=== PATIENT | female | born 1950 | race Caucasian/White ===

== ENCOUNTER 2020-01-15 10:18 | Outpatient (REF) | payer MEDICARE, SELFPAY ==
[2020-01-15 11:24] LABS: Hematocrit 43.8 % (37-47); Hemoglobin 14.4 g/dl (12.0-16.0); Mean Corpuscular HGB Conc 32.9 g/dl (31.0-35.0); Mean Corpuscular Hemoglobin 30.3 pg (27.0-33.0); Mean Corpuscular Volume 92.2 fL (80-98); Mean Platelet Volume 9.6 fL (9.4-12.3); Platelet Count 227 X10*3/uL (160-400); Red Blood Count 4.75 X10*6/uL (4.20-5.50); White Blood Count 5.4 X10*3/uL (4.8-10.8)
[2020-01-15 11:50] LABS: Alanine Aminotransferase 15 U/L (0-31); Albumin Level 4.2 g/dL (3.5-5.0); Alkaline Phosphatase 67 U/L (39-117); Anion Gap 12 (12-20); Aspartate Amino Transferase 19 U/L (5-31); Bilirubin Total 0.6 mg/dL (0.0-1.0); Blood Urea Nitrogen 18 mg/dL (9-16); Calcium 9.6 mg/dL (8.4-10.2); Carbon Dioxide 25 mmol/L (22-29); Chloride 105 mmol/L (96-108); Cholesterol 167 mg/dL; Estimated Glomerular Filt Rate 52; Glucose Fasting 88 mg/dL (60-99); HDL Cholesterol 42 mg/dL; LDL Cholesterol Calculated 107 mg/dl; Sodium 138 mmol/L (135-145); Total Protein 6.8 g/dL (6.5-8.0); Triglycerides 92 mg/dL
== END 2020-01-15 10:19 | disposition home or self-care (01) ==
LOC: HO.HMGCLDS 10:18
PROVIDERS: PCP Internal Medicine; Visit Provider Internal Medicine
DX: B02.29 Other postherpetic nervous system involvement (principal); I10 Essential (primary) hypertension; C44.90 Unspecified malignant neoplasm of skin, unspecified
CPT/HCPCS: 36415; 80053; 80061; 85027

== ENCOUNTER 2020-01-30 15:29 | Outpatient (REF) | payer MEDICARE, SELFPAY ==
--- NOTE | 2020-01-30 15:35 | US_ITS ---
EXAMINATION: US PELVIS CLINICAL INFORMATION: Bloating and abdominal distention with question of ovarian mass COMPARISON: CT abdomen pelvis 07/25/2013 TECHNIQUE: Ultrasound of the pelvis is performed using both transabdominal and transvaginal transducers along with Doppler. Transvaginal imaging is performed due to inadequate visualization transabdominally. FINDINGS: Uterus: Status post hysterectomy and not seen Adnexa: A large complex mass is seen filling a large portion of the abdominal and pelvic cavity with estimated size of 25 x 23 x 21 cm. Multiple septations are seen in this mass. Both arterial and venous flow is seen within the septations of the mass. Moderate ascites is present as was mentioned on the abdominal ultrasound performed the same day. Discrete ovaries are not visualized. US/US pelvic complete IMPRESSION: Very large complex multiseptated pelvic mass, presumably ovarian malignancy.
--- NOTE | 2020-01-30 15:35 | US_ITS ---
EXAMINATION: US ABDOMEN COMPLETE CLINICAL INFORMATION: Abdominal distention with question of ascites.. COMPARISON: CT abdomen pelvis 07/25/2013 TECHNIQUE: Real-time imaging of the abdominal viscera. FINDINGS: PANCREAS: Pancreas could not be seen as it was obscured by bowel gas. ABDOMINAL AORTA: The proximal, mid, and distal segments are normal in caliber. INFERIOR VENA CAVA: Visualized portions are normal. LIVER: The liver is normal in size. The liver contour is normal. Parenchymal echogenicity is normal. No focal hepatic lesion. There is no intrahepatic biliary duct dilatation seen. GALLBLADDER: The gallbladder is physiologically distended without evidence of stones, sludge, polyps, wall thickening or pericholecystic fluid. COMMON BILE DUCT: Normal in caliber measuring 0.3 cm in diameter. RIGHT KIDNEY: Right-sided hydronephrosis caused by an obstructing stone seen on 07/25/2013 has resolved. No hydronephrosis at this time. No renal calculi or focal parenchymal lesions. The kidney measures 11.0 cm in maximum dimension. LEFT KIDNEY: No hydronephrosis. No renal calculi or focal parenchymal lesions. The kidney measures 9.5 cm in maximum dimension. SPLEEN: Normal. The spleen measures 10.7 cm in maximum dimension. FREE FLUID: Moderate ascites is present. A large pelvic mass is seen-see report of pelvic ultrasound performed same day US/US abdomen complete IMPRESSION: Moderate ascites is present. No hydronephrosis or liver metastases are seen. For description of the pelvic mass see CT pelvis performed same day
== END 2020-01-30 15:30 | disposition home or self-care (01) ==
LOC: HO.US 15:29
PROVIDERS: PCP Internal Medicine; Visit Provider Internal Medicine
DX: N83.8 Other noninflammatory disorders of ovary, fallopian tube and broad ligament (principal); R14.0 Abdominal distension (gaseous)
CPT/HCPCS: 76700; 76856

== ENCOUNTER 2020-05-15 21:47 | Inpatient (IN) | payer MEDICARE, SELFPAY ==
--- NOTE | 2020-05-15 | ECG_ITS ---
Test Reason : TACHY Blood Pressure : / mmHG Vent. Rate : 116 BPM Atrial Rate : 116 BPM P-R Int : 152 ms QRS Dur : 080 ms QT Int : 318 ms P-R-T Axes : 045 -17 038 degrees QTc Int : 442 ms Sinus tachycardia Otherwise normal ECG When compared with ECG of 06-APR-2015 16:19, No significant change was found Referred By: Generic ED Physician Electronically Signed By:MAYITO MARTINEZ MD
--- NOTE | ~2020-05-15 | CT_ITS ---
EXAMINATION: CT ANGIOGRAM OF THE CHEST WITH AND WITHOUT CONTRAST (CT PULMONARY ANGIOGRAM FOR PE) CLINICAL INFORMATION: Hypoxia COMPARISON: None TECHNIQUE: Prior to contrast administration, noncontrast localization images were obtained. Subsequently, multidetector volumetric imaging was performed from the thoracic inlet to below the diaphragms following the administration of 65 mL Omnipaque 350 intravenous contrast. No contrast reaction reported Sagittal, coronal, and MIP oblique sagittal reformatted images were obtained on the CT workstation, uploaded to PACS, and reviewed. This CT examination was performed using dose optimization techniques as appropriate, variously including the following: *Automated exposure control *Adjustment of mA and/or kV according to patient size (this includes techniques or standardized protocols for targeted exams where dose is matched to indication/reason for exam; i.e. extremities or head) *Use of iterative reconstruction technique Total exam dose-length product 249 mGy-cm FINDINGS: QUALITY OF STUDY/CONTRAST BOLUS: Satisfactory. There is slight limitation in the mid lungs due to respiratory motion. PULMONARY ARTERIES: No central or segmental pulmonary emboli. THORACIC AORTA: No aneurysm or dissection. LUNG: There is dependent atelectasis in the lower lobes bilaterally, right greater than left there is collapse of the majority of the basal segments of the right lower lobe. Superimposed consolidation is suspected in the basilar segments as well. The central airways are clear. Mild interlobular septal thickening is present in the lung apices. PLEURA: No pleural effusion or pneumothorax. MEDIASTINUM: Normal heart size. No pericardial effusion. No hilar or mediastinal lymphadenopathy. No evidence of septal bowing or right heart strain. Small amount of residual thymic tissue is present in the anterior mediastinum. No adenopathy. Thyroid gland is unremarkable. CHEST WALL/AXILLA: No axillary or internal mammary lymphadenopathy. OSSEOUS STRUCTURES: There is mild multilevel degenerative disc disease in the thoracic spine. A small superior endplate fracture is present at the T9 vertebral body, likely chronic. No additional fractures. Mild hyperkyphosis. No rib fractures. UPPER ABDOMEN: Unremarkable. No reflux of contrast into the hepatic veins to suggest elevated right heart pressures. CT/CT angio chest PE protocol IMPRESSION: 1. No evidence of pulmonary emboli. 2. Bibasilar segmental atelectasis, right side greater than left, most notably in the right lower lobe. Small foci of superimposed consolidation are possible. VTE: negative
--- NOTE | ~2020-05-15 | XR_ITS ---
EXAMINATION: XR CHEST CLINICAL INFORMATION: Shortness of breath COMPARISON: Chest x-ray 04/06/2015 TECHNIQUE: Frontal portable view of the chest was obtained. 11:18 PM FINDINGS: Central port catheter tip at caval atrial junction. Lung volume is low causing mild prominence of the bronchovascular markings. There are multifocal bibasilar airspace opacities. These are worse on the right than the left. No pleural effusion. No pneumothorax. Surgical clips right upper quadrant of abdomen. XR/XR chest 1V IMPRESSION: Multifocal bibasilar airspace opacities.
--- NOTE | ~2020-05-15 | US_ITS ---
EXAMINATION: US ABDOMEN LIMITED CLINICAL INFORMATION: transaminitis. COMPARISON: 01/30/2020 TECHNIQUE: Real-time imaging of the right upper quadrant abdominal viscera. FINDINGS: PANCREAS: Normal. LIVER: There is a 2.3 x 1.5 x 1.7 cm fluid containing focus between the left and right hepatic lobes which may correspond to loculated fluid within the falciform ligament region. A chronic, although an hepatic cyst is also possible. The liver is normal in size. The liver contour is normal. Parenchymal echogenicity is normal. No focal hepatic lesion. There is no intrahepatic biliary duct dilatation seen. GALLBLADDER: Status post cholecystectomy. COMMON BILE DUCT: Normal in caliber measuring 0.3 cm in diameter. RIGHT KIDNEY: Normal. No hydronephrosis. No renal calculi or focal parenchymal lesions. The kidney measures 11.6 cm in maximum dimension. FREE FLUID: None. US/US abdomen limited IMPRESSION: Small 2.3 cm oblong pocket of fluid between the right and left hepatic lobes, possibly loculated fluid in the region of the falciform ligament. Otherwise unremarkable right upper quadrant ultrasound. No acute findings. Status post cholecystectomy
[2020-05-15 21:57] VITALS: BP 98/54; PULSE 132; RESP 28; TEMP 39.9; O2SAT 90; BMI 21.7
[2020-05-15] MEDS: Acetaminophen 325 MG TABLET 650 MG PO (22:32)
[2020-05-15 22:33] LABS: MANUAL DIFF FLAG NO
--- NOTE | 2020-05-15 22:35 | ED_ITS ---
HPI - Fever General Chief Complaint: Fever Stated Complaint: ? SEPSIS Time Seen by Provider: 05/15/20 22:18 History of Present Illness HPI Narrative: Patient is a 69-year-old female presented today with having fever. Generalized malaise. Patient has a history of appendiceal cancer. Sta tus post removal back in February. The surgery was done at [facility]. Patient subsequently suffer from malnutrition. Failure to thrive. Had TPN place been on TPN for the last month. Was admitted to [facility] back in March. Positive coughing upper respiratory symptoms. Patient did have her coronavirus vaccine for shot was i March 01 shot in March. No pain on urination. Cough nonproductive in nature. Patient from home. Feels very weak and tired. Related Data Home Medications Medication Instructions Recorded Confirmed flu vacc (64yr IM 01/30/20 01/30/20 up)-MF59C(PF) 60 mcg(15 mcgx4)/0.5 mL IM syringe potassium citrate 10 mEq (1,080 20 meq PO BID 01/30/20 01/30/20 mg) tablet,extended release Previous Rx's Medication Instructions Recorded lidocaine 5 % topical patch 1 patch TOPICAL DAILY #30 ea 12/19/19 gabapentin 100 mg capsule 200 mg PO BID #360 cap 12/20/19 lisinopril 5 mg tablet 2.5 mg PO DAILY #45 tab 01/01/20 ibuprofen 600 mg tablet 600 mg PO TID PRN #270 tab 03/21/20 lorazepam 0.5 mg tablet 0.5 mg PO BEDTIME PRN 30 Days #30 04/22/20 tab Allergies Allergy/AdvReac Type Severity Reaction Status Date / Time No Known Allergies Allergy Verified 05/15/20 22:10 Review of Systems Review of Systems: Constitutional: No Weight loss, No Fever, No Chills, No Night Sweats, No Fatigue, No Malaise ENT/Mouth: No Hearing loss, No Ear Pain, No Nasal Congestion, No Sinus Pain, No Hoarseness, No sore throat, No Rhinorrhea, No Swallowing Difficulty Eyes: No Eye Pain, No Swelling, No Redness, No Foreign Body, No Discharge, No Vision Changes Cardiovascular: No Chest Pain, No SOB, No Dyspnea on Exertion, No Orthopnea, No Edema, No Palpitations Respiratory: Positive Cough, No Sputum, No Wheezing, No Smoke Exposure, No Dyspnea Gastrointestinal: No Nausea, No Vomiting, No Diarrhea, No Constipation, No abdominal Pain, No Hematochezia, No Melena Genitourinary: no irregular bleeding, No Dysuria, No Urinary Frequency, No Hematuria, No Urinary Incontinence, No Urgency, No Flank Pain, No Urinary Flow Changes, No Hesitancy Musculoskeletal: No joint pain, No Myalgias, No Joint Swelling Skin: No Skin Lesions, No rash Neuro: No Weakness, No Numbness, No Paresthesias, No Loss of Consciousness, No Dizziness, No Headache Psych: No Anxiety/Panic, No Depression, No SI/HI/AH/VH, No Social Issues, Heme/Lymph: No Bruising, No Bleeding,No Lymphadenopathy Endocrine: No Polyuria, No Polydipsia, No Temperature Intolerance [facility] Past Medical History Medical History Abdominal distention Ascites HTN (hypertension) Osteopenia Ovarian mass Prolapse of bladder PTSD (post-traumatic stress disorder) Right renal stone Surgical History History of lithotripsy History of partial hysterectomy History of tubal ligation Family History Family History Father Renal cell carcinoma HTN (hypertension) Stroke Mother HTN (hypertension) CVD (cardiovascular disease) Afib Social History Social History Alcohol intake: never Smoking Status: Never smoker Advance Directives: No Advance Directives Information Provided: Yes Physical Exam Vital Signs: Vital Signs: Last Vital Signs Temp 99.1 F 05/16/20 00:06 Pulse 108 H 05/16/20 00:06 Resp 18 05/16/20 00:06 BP 98/43 L 05/16/20 00:06 Pulse Ox 90 L 05/15/20 21:57 Body Mass Index 21.7 Appearance: Alert. Oriented X3. No acute distress. Eyes: Pupils equal, round and reactive to light. ENT: Pharynx normal. Neck: Normal inspection. Neck supple. No lymph nodes noted. No crepitus CVS: Normal heart rate and rhythm. Pulses normal. Normal S1 and S2 Respiratory: No respiratory distress. Breath sounds normal. No Wheezing. No rales Abdomen: Soft and nontender. No rigidity. No distention. good BS x4 Skin: Skin warm and dry. Normal skin color. Normal skin turgor. Extremities: No lower extremity edema. Neurovascular intact to all extremities. No Lacerations. No Rash Neuro: Oriented X 3. No motor deficit. No sensory deficit. Moving all extermities. No slurred speech MDM - Fever MDM Narrative Medical decision making narrative: Patient's chest x-ray show multifocal infiltrate. Question pneumonia. Patient's coronavirus test was negative. Started on cefepime for hospital-acquired pneumonia. Culture obtained. Lactate was less than 2. No evidence for severe sepsis. Patient given IV fluid with blood pressure recovering nicely. Temperature down. Heart rate down to 100. Will admit for further evaluation. Will monitor carefully. Currently in stable condition case discussed with hospitalist. Medical Records Attestation: I reviewed the patient's medical records. Lab Data Attestation: I reviewed the patient's lab results. Result diagrams: 05/15/20 22:25 05/15/20 22:25 Labs: Lab Results 05/15/20 05/15/20 05/15/20 Range/Units 22:25 22:25 22:25 WBC 11.0 H (4.8-10.8) X10*3/uL RBC 3.37 L D (4.20-5.50) X10*6/uL Hgb 9.6 L D (12.0-16.0) g/dl Hct 30.3 L D (37-47) % MCV 89.9 (80-98) fL MCH 28.5 (27.0-33.0) pg MCHC 31.7 (31.0-35.0) g/dl RDW 15.9 (11.0-16.0) % Plt Count 194 (160-400) X10*3/uL MPV 9.7 (9.4-12.3) fL Immature Gran % (Auto) 0.5 H (0.0-0.4) % Neut % (Auto) 87.1 H (45-73) % Lymph % (Auto) 9.5 L (20-40) % [place] % (Auto) 1.2 L (2-11) % Eos % (Auto) 1.4 (0-4) % Baso % (Auto) 0.3 (0-2) % Lymph # (Auto) 1.0 L (1.2-4.9) X10*3/uL [place] # (Auto) 0.1 (0.1-1.2) X10*3/uL Eos # (Auto) 0.2 (0.0-0.4) X10*3/uL Baso # (Auto) 0.0 (0.0-0.2) X10*3/uL Abs Immat Gran (auto) 0.05 H (0.00-0.03) X10*3/uL Absolute Neuts (auto) 9.6 H (2.0-8.3) X10*3/uL Absolute Nucleated RBC 0.040 H (0.0-0.012) X10*3/uL Nucleated RBC % (auto) 0.4 H (0.0-0.2) /100WBC Sodium 132 L (135-145) mmol/L Potassium 3.9 (3.3-5.1) mmol/L Chloride 103 (96-108) mmol/L Carbon Dioxide 23 (22-29) mmol/L Anion Gap 10 L (12-20) BUN 32 H D (9-16) mg/dL Creatinine 0.67 (0.5-1.4) mg/dL Estim Creat Clear Calc 58.9 Estimated GFR > 60 Random Glucose 80 (60-115) mg/dL Lactic Acid 1.0 (0.5-2.0) mmol/L Calcium 8.5 D (8.4-10.2) mg/dL Total Bilirubin 0.6 (0.0-1.0) mg/dL Direct Bilirubin 0.3 (0.0-0.5) mg/dL AST 80 H (5-31) U/L ALT 103 H (0-31) U/L Alkaline Phosphatase 238 H D (39-117) U/L Total Protein 5.5 L (6.5-8.0) g/dL Albumin 2.9 L D (3.5-5.0) g/dL Coronavirus (PCR) (Negative) Influenza Type A (PCR) (Negative) Influenza Type B (PCR) (Negative) RSV RNA Qual (PCR) (Negative) 05/15/20 Range/Units 22:26 WBC (4.8-10.8) X10*3/uL RBC (4.20-5.50) X10*6/uL Hgb (12.0-16.0) g/dl Hct (37-47) % MCV (80-98) fL MCH (27.0-33.0) pg MCHC (31.0-35.0) g/dl RDW (11.0-16.0) % Plt Count (160-400) X10*3/uL MPV (9.4-12.3) fL Immature Gran % (Auto) (0.0-0.4) % Neut % (Auto) (45-73) % Lymph % (Auto) (20-40) % [place] % (Auto) (2-11) % Eos % (Auto) (0-4) % Baso % (Auto) (0-2) % Lymph # (Auto) (1.2-4.9) X10*3/uL [place] # (Auto) (0.1-1.2) X10*3/uL Eos # (Auto) (0.0-0.4) X10*3/uL Baso # (Auto) (0.0-0.2) X10*3/uL Abs Immat Gran (auto) (0.00-0.03) X10*3/uL Absolute Neuts (auto) (2.0-8.3) X10*3/uL Absolute Nucleated RBC (0.0-0.012) X10*3/uL Nucleated RBC % (auto) (0.0-0.2) /100WBC Sodium (135-145) mmol/L Potassium (3.3-5.1) mmol/L Chloride (96-108) mmol/L Carbon Dioxide (22-29) mmol/L Anion Gap (12-20) BUN (9-16) mg/dL Creatinine (0.5-1.4) mg/dL Estim Creat Clear Calc Estimated GFR Random Glucose (60-115) mg/dL Lactic Acid (0.5-2.0) mmol/L Calcium (8.4-10.2) mg/dL Total Bilirubin (0.0-1.0) mg/dL Direct Bilirubin (0.0-0.5) mg/dL AST (5-31) U/L ALT (0-31) U/L Alkaline Phosphatase (39-117) U/L Total Protein (6.5-8.0) g/dL Albumin (3.5-5.0) g/dL Coronavirus (PCR) NEGATIVE (Negative) Influenza Type A (PCR) NEGATIVE (Negative) Influenza Type B (PCR) NEGATIVE (Negative) RSV RNA Qual (PCR) NEGATIVE (Negative) Critical Care Time Critical Care Time Total Critical Care Time: 40 Attestation: I have personally provided 40 minutes of critical care time exclusive of time spent on separately billable procedures. Time includes review of lab data, radiology results, discussion with consultants, and monitoring for potential decompensation. Interventions were performed as documented above Discharge Plan Discharge Clinical Impression: Pneumonia Patient Disposition: Admitted As Inpatient Prescriptions: No Action lidocaine 5 % adhesive patch,medicated 1 patch topical DAILY Qty: 30 RF: 6 gabapentin 100 mg capsule 200 mg PO BID Qty: 360 RF: 6 lisinopril 5 mg tablet 2.5 mg PO DAILY Qty: 45 RF: 3 ibuprofen 600 mg tablet 600 mg PO TID PRN (Reason: pain) Qty: 270 RF: 0 lorazepam 0.5 mg tablet 0.5 mg PO BEDTIME PRN (Reason: anxiety) 30 Days Qty: 30 RF: 2 potassium citrate 10 mEq (1,080 mg) tablet extended release 20 meq PO BID RF: 0 Fluad Quad 2019-(65y up)(PF) 60 mcg (15 mcg x 4)/0.5 mL syringe IM RF: 0
[2020-05-15 22:36] LABS: Basophils Percent Auto 0.3 % (0-2); Eosinophils Absolute Auto 0.2 X10*3/uL (0.0-0.4); Eosinophils Percent Auto 1.4 % (0-4); Hematocrit 30.3 % (37-47); Hemoglobin 9.6 g/dl (12.0-16.0); Imm Gran Abs Auto 0.05 X10*3/uL (0.00-0.03); Imm Gran Pct Auto 0.5 % (0.0-0.4); Lymphocytes Percent Auto 9.5 % (20-40); Mean Corpuscular HGB Conc 31.7 g/dl (31.0-35.0); Mean Corpuscular Hemoglobin 28.5 pg (27.0-33.0); Mean Corpuscular Volume 89.9 fL (80-98); Mean Platelet Volume 9.7 fL (9.4-12.3); Monocytes Absolute Auto 0.1 X10*3/uL (0.1-1.2); Monocytes Percent Auto 1.2 % (2-11); NRBC Pct Auto 0.4 /100WBC (0.0-0.2); Neutrophils Absolute Auto 9.6 X10*3/uL (2.0-8.3); Neutrophils Percent Auto 87.1 % (45-73); Platelet Count 194 X10*3/uL (160-400); Red Blood Count 3.37 X10*6/uL (4.20-5.50); Red Cell Distribution Width 15.9 % (11.0-16.0)
--- NOTE | 2020-05-15 22:53 | PC.NURSE ---
victoria [phone]
[2020-05-15] MEDS: cefEPime HCl 1 GM in 0.9 % Sodium Chloride 50 ML IV (22:59)
[2020-05-15] MEDS: 0.9 % Sodium Chloride 1,000 ML 999 ML IV (22:59)
[2020-05-15 23:02] LABS: Alanine Aminotransferase 103 U/L (0-31); Albumin Level 2.9 g/dL (3.5-5.0); Alkaline Phosphatase 238 U/L (39-117); Anion Gap 10 (12-20); Aspartate Amino Transferase 80 U/L (5-31); Bilirubin Direct 0.3 mg/dL (0.0-0.5); Bilirubin Total 0.6 mg/dL (0.0-1.0); Blood Urea Nitrogen 32 mg/dL (9-16); Calcium 8.5 mg/dL (8.4-10.2); Carbon Dioxide 23 mmol/L (22-29); Chloride 103 mmol/L (96-108); Creatinine Clr Calc Pharmacy 58.9; Estimated Glomerular Filt Rate > 60; Glucose Random 80 mg/dL (60-115); Potassium 3.9 mmol/L (3.3-5.1); Sodium 132 mmol/L (135-145); Total Protein 5.5 g/dL (6.5-8.0)
[2020-05-15 23:15] LABS: Influenza A PCR NEGATIVE (Negative); Influenza B PCR NEGATIVE (Negative); Resp Syncy Virus RNA Qual PCR NEGATIVE (Negative); SARS COV2 PCR INHOUSE NEGATIVE (Negative)
[2020-05-15] MEDS: vancomycin HCL 1,000 MG in 0.9 % Sodium Chloride 250 ML 270 MG IV (23:57)
[2020-05-16] VITALS (17 sets, daily range): BP systolic 86–127; BP diastolic 41–89; PULSE 67–108; RESP 16–26; TEMP 35.9–37.3; O2SAT 95–99
--- NOTE | 2020-05-16 00:34 | PM.IMHP ---
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 Mayank dempsey at [facility]; she subsequently discharged home on March 26. Since discharge patient has significantly reduced oral intakes and was eating and very small quantities; was not able tolerate p.o.; subsequently patient had a 2nd admission on April 11 at [facility] for failure to thrive where she had PICC line/port placed and subsequently sent to the home on TPN. Patient has been receiving TPN since then; This time patient mentioned that she had chills the day before and last night she had chills associated with a fever; recall in the visiting nurses who suggested to go to the ER for further evaluation. Otherwise patient denies any cough. Denies any chest pain palpitations lightheadedness dizziness. Denies any urinary symptoms. Denies any nausea vomiting or diarrhea. Denies any abdominal discomfort. Review of all other systems is negative except mentioned above ER course: Per ER team patient at exam was benign; port site looks okay; blood cultures have been sent from the port and peripheral line. Patient was hypertensive on presentation with systolic in a low 80s. Given fluids 30ml/kg; with improvement in blood pressure 95/45; he patient otherwise remained asymptomatic. But noted to have hypoxia to 90%; subsequently placed on supplemental oxygen. Patient was also initially significantly tachycardic-improving tachycardia with IV fluids. Admitted to the hospital for further [facility] Medical History Abdominal distention Ascites HTN (hypertension) Osteopenia Ovarian mass Prolapse of bladder PTSD (post-traumatic stress disorder) Right renal stone Family History Father Renal cell carcinoma HTN (hypertension) Stroke Mother HTN (hypertension) CVD (cardiovascular disease) Afib Surgical History History of lithotripsy History of partial hysterectomy History of tubal ligation Social History Alcohol intake: never Smoking Status: Never smoker Smoked in Last 30 Days: No Use of substances other than those prescribed or required for medical reasons: No Advance Directives: No Advance Directives Information Provided: Yes Meds Allergies Allergy/AdvReac Type Severity Reaction Status Date / Time No Known Allergies Allergy Verified 05/15/20 22:10 Active Medications: Current Medications Generic Name Dose Route Start Last Admin Trade Name Freq PRN Reason Stop Dose Admin Acetaminophen 650 mg 05/16/20 00:28 Acetaminophen 325 Mg Tablet PO Q6H PRN Pain, Mild (Pain Scale 1-3) Enoxaparin Sodium 40 mg 05/16/20 00:30 Enoxaparin Sodium 40 Mg/0.4 Ml Syringe SUBCUT Q24H ANTONIO Sodium Chloride 1,000 mls @ 100 mls/hr 05/16/20 00:30 Ns IVCONT .Q10H ANTONIO Piperacillin Sod/Tazobactam 50 mls @ 100 mls/hr 05/16/20 00:30 Sod 3.375 gm/ Sodium Chloride IV Q6H ANTNOIO Vancomycin HCl 1,000 mg/ 270 mls @ 270 mls/hr 05/16/20 00:30 Sodium Chloride IV Q12H [facility] Pharmacy Consult 1 each 05/15/20 23:08 Consult Rx Perform Med Rec MISCELLANE ONCE PRN Consult order Pharmacy Consult 1 each 05/16/20 00:28 Consult Rx Vancomycin Dosing MISCELLANE DAILY PRN Consult order Senna 17.2 mg 05/16/20 00:28 Sennosides 8.6 Mg Tablet PO BEDTIME PRN Constipation Sodium Chloride 3 ml 05/16/20 08:00 0.9 % Sodium Chloride Flush 3 Ml [facility] Home Medications Medication Instructions Recorded Confirmed Last Taken Type Eliquis 1 tab PO BID 05/16/20 05/16/20 05/15/20 History gabapentin 2 cap PO BID 05/16/20 05/16/20 05/15/20 History lidocaine 1 patch TOPICAL DAILY 05/16/20 05/16/20 05/15/20 History lisinopril 0.5 tab PO DAILY 05/16/20 05/16/20 05/15/20 History lorazepam 1 tab PO BEDTIME PRN 05/16/20 05/16/20 05/15/20 History ondansetron 1 tab PO BID PRN 05/16/20 05/16/20 05/15/20 History polyethylene glycol 3350 1 packet PO DAILY 05/16/20 05/16/20 05/15/20 History potassium citrate 2 tab PO BID 05/16/20 05/16/20 05/15/20 History Physical Exam Vital Signs and Narrative: Vital Signs: Last Vital Signs Temp 99.1 F 05/16/20 00:06 Pulse 108 H 05/16/20 00:06 Resp 18 05/16/20 00:06 BP 98/43 L 05/16/20 00:06 Pulse Ox 90 L 05/15/20 21:57 Body Mass Index 21.7 Gen: Appears be in no acute distress; HEENT: NCAT, Moist mucosa. Pulmonary: Course breath sounds, fair air entry. Port site looks clean. CVS: Normal S1-S2 Abdomen: BS+, Soft, Nontender Extremities: Warm well perfused; good capillary refill. ppp. Neuro: Alert and awake. Grossly nonfocal Results Labs CBC and Chem 7: 05/16/20 08:33 05/16/20 08:33 Labs: Laboratory Results - last 24 hr 05/15/20 05/15/20 05/15/20 22:25 22:25 22:25 MCV 89.9 MCH 28.5 MCHC 31.7 RDW 15.9 Plt Count 194 MPV 9.7 Immature Gran % (Auto) 0.5 H Neut % (Auto) 87.1 H Lymph % (Auto) 9.[address] [place] % (Auto) 1.2 L Eos % (Auto) 1.4 Baso % (Auto) 0.3 Lymph # (Auto) 1.[address] [place] # (Auto) 0.1 Eos # (Auto) 0.2 Baso # (Auto) 0.0 Abs Immat Gran (auto) 0.05 H Absolute Neuts (auto) 9.6 H Absolute Nucleated RBC 0.040 H Nucleated RBC % (auto) 0.4 H Anion Gap 10 L Estim Creat Clear Calc 58.9 Estimated GFR > 60 Random Glucose 80 Lactic Acid 1.0 Calcium 8.5 D Total Bilirubin 0.6 Direct Bilirubin 0.3 AST 80 H ALT 103 H Alkaline Phosphatase 238 H D Total Protein 5.5 L Albumin 2.9 L D Coronavirus (PCR) Influenza Type A (PCR) Influenza Type B (PCR) RSV RNA Qual (PCR) 05/15/20 22:26 MCV MCH MCHC RDW Plt Count MPV Immature Gran % (Auto) Neut % (Auto) Lymph % (Auto) [place] % (Auto) Eos % (Auto) Baso % (Auto) Lymph # (Auto) [place] # (Auto) Eos # (Auto) Baso # (Auto) Abs Immat Gran (auto) Absolute Neuts (auto) Absolute Nucleated RBC Nucleated RBC % (auto) Anion Gap Estim Creat Clear Calc Estimated GFR Random Glucose Lactic Acid Calcium Total Bilirubin Direct Bilirubin AST ALT Alkaline Phosphatase Total Protein Albumin Coronavirus (PCR) NEGATIVE Influenza Type A (PCR) NEGATIVE Influenza Type B (PCR) NEGATIVE RSV RNA Qual (PCR) NEGATIVE Imaging Radiologist's Impressions: Impressions Chest X-Ray 05/15/20 23:12 IMPRESSION: Multifocal bibasilar airspace opacities. Assessment and Plan (1) Pneumonia: Status: Acute 69-year-old female with a past medical history of hypertension, anxiety, neuropathy, recent admission to the [facility] for appendiceal carcinoma status post surgery; currently on TPN via central port presented with fevers. Noted to be hypertensive. Improving blood pressure with IV fluids. Severe sepsis: Likely in the setting of multifocal pneumonia as noted on the chest x-ray. Continue IV vancomycin and Zosyn. Will monitor blood pressure closely-patient was hypotensive on presentation; blood pressure improving with IV fluids. Patient mentating well, benign examination, warm peripheries with good capillary refill. Blood cultures sent from the old as well as the peripheral line. Spoke to the RN to not to use the port. Multifocal pneumonia: Continue IV vancomycin and Zosyn. Influenza a, COVID-19 negative. Id consultation for further recommendations. Hypoxia: Likely in the setting of multifocal pneumonia. But will also rule out PE given history of appendiceal cancer/surgery. CT PE protocol has been ordered. Patient denies any contrast allergy. Kidney function within normal limits. Transaminitis: Likely in the setting of sepsis. Will obtain hepatitis panel and ultrasound as well. Monitor liver enzymes. avoid Tylenol Appendiceal carcinoma: Status post surgery in February of 2020. Currently NPO-> postsurgical. Diet: Patient on TPN via port since March 2020. Will hold the TPN for now given concerns for port infection. Will wait until further recommendations by Infectious Disease consult before using the port again. History of hypertension: Hold home medications. DVT prophylaxis: Lovenox Code status: Full code
--- NOTE | 2020-05-16 01:02 | PC.NURSE ---
Per hospitalist, Hospitalist requesting that additional set of blood cultures be drawn from the patient's port to compare to the set drawn earlier from the peripheral IV access by AJITH Carroll. Will continue to monitor.
[2020-05-16 01:44] LABS: Lipase 37 U/L (8-78)
[2020-05-16] MEDS: Piperacillin Sodium/Tazobactam 3.375 GM in 0.9 % Sodium Chloride 50 ML IV ×3 (02:22→13:24)
[2020-05-16] MEDS: Enoxaparin Sodium 40 MG/0.4 ML SYRINGE SUBCUT (02:22)
[2020-05-16] MEDS: 0.9 % Sodium Chloride 1,000 ML 100 ML IVCONT ×2 (02:23→14:47)
[2020-05-16 04:45] LABS: Glucose Urine UA NEG (NEG); Leukocyte Esterase Urine NEG (NEG); Nitrite Urine NEG (NEG); PH 6.5 (5.0-8.0); Specific Gravity - Urine 1.015 (1.005-1.025); Urine Blood TRACE (NEG); Urine Ketones NEG (NEG); Urine Protein 1+ MG/DL (NEG-TRACE)
[2020-05-16 04:46] LABS: Appearance Urine HAZY; Color Urine YELLOW
[2020-05-16 04:53] LABS: Bacteria Urine 2+ /LPF; Mucus Urine 2+ /LPF; Squamous Epithelial Cell Urine 2+ /LPF
[2020-05-16] MEDS: Acetaminophen 325 MG TABLET 650 MG PO (07:17)
[2020-05-16] MEDS: 0.9 % Sodium Chloride Flush 3 ML SYRINGE IVFLUSH ×3 (07:25→13:31)
[2020-05-16 08:29] LABS: HBsAGNum1 0.11 S/CO (0.00-0.99); Hepatitis A Antibody IgM 0.12 Index (0-0.79); Hepatitis B Surface Antigen Negative (Negative); ~Hepatitis A Antibody IgM Nonreactive (Nonreactive)
[2020-05-16 08:40] LABS: MANUAL DIFF FLAG NO
[2020-05-16 08:43] LABS: Basophils Absolute Auto 0.1 X10*3/uL (0.0-0.2); Basophils Percent Auto 0.4 % (0-2); Eosinophils Absolute Auto 0.1 X10*3/uL (0.0-0.4); Eosinophils Percent Auto 0.9 % (0-4); Hematocrit 32.2 % (37-47); Hemoglobin 10.1 g/dl (12.0-16.0); Imm Gran Abs Auto 0.06 X10*3/uL (0.00-0.03); Imm Gran Pct Auto 0.4 % (0.0-0.4); Lymphocytes Absolute Auto 3.2 X10*3/uL (1.2-4.9); Mean Corpuscular HGB Conc 31.4 g/dl (31.0-35.0); Mean Corpuscular Hemoglobin 28.4 pg (27.0-33.0); Mean Corpuscular Volume 90.4 fL (80-98); Mean Platelet Volume 9.8 fL (9.4-12.3); Monocytes Absolute Auto 0.8 X10*3/uL (0.1-1.2); Monocytes Percent Auto 5.6 % (2-11); NRBC Pct Auto 0.2 /100WBC (0.0-0.2); Neutrophils Absolute Auto 9.9 X10*3/uL (2.0-8.3); Neutrophils Percent Auto 69.7 % (45-73); Platelet Count 212 X10*3/uL (160-400); Red Blood Count 3.56 X10*6/uL (4.20-5.50); White Blood Count 14.1 X10*3/uL (4.8-10.8)
[2020-05-16 08:52] LABS: HBc Num1 0.09 S/CO (0.00-0.79); Hepatitis B Core Antibody Nonreactive (Nonreactive); ~HepC Num1 0.18 S/CO (0.00-0.79); ~Hepatitis B Surface Antibody NONREACTIVE (Nonreactive); ~Hepatitis C Antibody Nonreactive (Nonreactive)
--- NOTE | 2020-05-16 09:11 | P.CDIC_ITS ---
CDI Concurrent Query Service Date: 05/16/20 Documentation Clarification: Please clarify if you are treating a proba ble/suspected/likely or confirmed: Specifics: Malnutrition Protein calorie malnutrition, mild, moderate or severe Please specify if known Provider Response: Moderate Protein-Calorie Malnutrition PLEASE DO NOT DELETE/MODIFY EXISTING CONTENT Additional information is needed in order to code to the highest accuracy and appropriate Severity of Illness (SOI). Please clarify the information noted below in your progress notes and discharge summary. Risk Factors/Clinical Indicators/Treatments ED: patient suffers from malnutrition, FTT reduced oral intake, eating small amounts, not able to tolerate p.o. TPN BMI 21.7 CDS: Jailyn Barreto CCS, CDIS Contact Number: [phone] Please Review the information above and exercise your independent professional judgment in responding to the query. If you concur, pleas document in the PROGRESS NOTES and DISCHARGE SUMMARY. If you do not agree with the query, please document in the query above. THIS QUERY IS PART OF THE PERMANENT MEDICAL RECORD
[2020-05-16 09:17] LABS: Creatinine Clr Calc Pharmacy 57.2; Estimated Glomerular Filt Rate > 60
[2020-05-16 09:18] LABS: Anion Gap 9 (12-20); Blood Urea Nitrogen 23 mg/dL (9-16); Calcium 8.4 mg/dL (8.4-10.2); Carbon Dioxide 23 mmol/L (22-29); Chloride 108 mmol/L (96-108); Glucose Random 82 mg/dL (60-115); Magnesium 1.8 mg/dL (1.6-2.6); Potassium 4.2 mmol/L (3.3-5.1); Sodium 136 mmol/L (135-145)
[2020-05-16] MEDS: vancomycin HCL 1,000 MG in 0.9 % Sodium Chloride 250 ML 270 MG IV (09:25)
--- NOTE | 2020-05-16 10:33 | P.CDIC_ITS ---
CDI Concurrent Query Service Date: 05/16/20 Documentation Clarification: Please clarify if you are treating a proba ble/suspected/likely or confirmed: Acute hypoxic respiratory failure, poa, resolved Hypoxemia Please specify if known or other Provider Response: Other Other Diagnosis: no hypoxia noted PLEASE DO NOT DELETE/MODIFY EXISTING CONTENT Additional information is needed in order to code to the highest accuracy and appropriate Severity of Illness (SOI). Please clarify the information noted below in your progress notes and discharge summary. Risk Factors/Clinical Indicators/Treatments Pt hypoxia 90% placed on supplemental oxygen, tachycardia improving with IV fluids. RR 28 HR 132 patient placed on 4 liters oxygen. Hypoxia likely in the setting of pneumonia. CDS: Jailyn Barreto CCS, CDIS Contact Number: [phone] Please Review the information above and exercise your independent professional judgment in responding to the query. If you concur, pleas document in the PROGRESS NOTES and DISCHARGE SUMMARY. If you do not agree with the query, please document in the query above. THIS QUERY IS PART OF THE PERMANENT MEDICAL RECORD
--- NOTE | 2020-05-16 12:10 | P.DS_ITS ---
DS: Providers Provider Date of Service: 05/16/20 Date of admission: 05/16/20 00:28 Primary care physician: Unknown Physician Consults: 05/16/20 00:28 Consult to Infectious Diseases Routine Consulting Provider: Tonia Garcia Reason for consultation: PNA; ?sepsis from port infection. DS: Diagnosis Discharge Diagnosis (1) Pneumonia: Status: Acute (2) Severe sepsis: Status: Acute (3) Gram-negative bacteremia: Status: Acute DS: Medications Discharge Medications Home Medications: Home Medications Medication Instructions Recorded Confirmed Eliquis 1 tab PO BID 05/16/20 05/16/20 gabapentin 2 cap PO BID 05/16/20 05/16/20 lidocaine 1 patch TOPICAL DAILY 05/16/20 05/16/20 lisinopril 0.5 tab PO DAILY 05/16/20 05/16/20 lorazepam 1 tab PO BEDTIME PRN 05/16/20 05/16/20 ondansetron 1 tab PO BID PRN 05/16/20 05/16/20 polyethylene glycol 3350 1 packet PO DAILY 05/16/20 05/16/20 potassium citrate 2 tab PO BID 05/16/20 05/16/20 Previous Rx's Medication Instructions Recorded piperacillin-tazobactam 3.375 g IV Q6H #10 ea 05/16/20 DS: Summary Hospital Course Hospital Course: HPI from admission note Chief Complaint: Fever 69-year-old female with a past medical history of hypertension, anxiety, neuropathy, 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 Mayank dempsey at [facility]; she subsequently discharged home on March 26. Since discharge patient has significantly reduced oral intakes and was eating and very small quantities; was not able tolerate p.o.; subsequently patient had a 2nd admission on April 11 at [facility] for failure to thrive where she had port placed and subsequently sent to the home on TPN. Patient has been receiving TPN since then; This time patient mentioned that she had chills the day before and last night she had chills associated with a fever; recall in the visiting nurses who s uggested to go to the ER for further evaluation. Otherwise patient denies any cough. Denies any chest pain palpitations lightheadedness dizziness. Denies any urinary symptoms. Denies any nausea vomiting or diarrhea. Denies any abdominal discomfort. ER course: Per ER team patient at exam was benign; port site looks okay; blood cultures have been sent from the port and peripheral line. Patient was hypertensive on presentation with systolic in a low 80s. Given fluids 30ml/kg; with improvement in blood pressure 95/45; he patient otherwise remained asymptomatic. But noted to have hypoxia to 90%; subsequently placed on supplemental oxygen. Patient was also initially significantly tachycardic-improving tachycardia with IV fluids. 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 Mcleod admitted with severe sepsis likely secondary to infected port , patient was getting TPN at home from port , patient was started on broad-spectrum antibiotic Vanco and Zosyn, blood culture preliminary was growing gram-negative rods 2 sets from port , patient's hypotension was resolved , blood pressure was stable, patient also had CTA chest on admission was negative for pulmonary embolism but shows infiltrates possible pneumonia ,Patient was continued on IV fluid antibiotics and supportive management, case was discussed with [facility] with dr Mcleod given the complexity of care and being followed at [facility] patient was accepted at [facility] for further care, patient was stable transferred to [facility] for further management, patient was continued on IV fluid and antibiotic on discharge. Time Spent with Patient Time attestation: Total time spent providing and/or coordinating discharge services: Discharge coordination time: Greater than 30 minutes Physical Exam Vital Signs: Vital Signs: Last Vital Signs Temp 98.0 F 05/16/20 11:38 Pulse 68 05/16/20 11:38 Resp 26 H 05/16/20 11:38 BP 105/63 05/16/20 11:38 Pulse Ox 99 05/16/20 11:38 Body Mass Index 21.7 DS: Data Data Completed and Pending Labs on day of discharge: Laboratory Results - last 24 hr 05/15/20 05/15/20 05/15/20 22:25 22:25 22:25 WBC 11.0 H RBC 3.37 L D Hgb 9.6 L D Hct 30.3 L D MCV 89.9 MCH 28.5 MCHC 31.7 RDW 15.9 Plt Count 194 MPV 9.7 Immature Gran % (Auto) 0.5 H Neut % (Auto) 87.1 H Lymph % (Auto) 9.5 L [place] % (Auto) 1.2 L Eos % (Auto) 1.4 Baso % (Auto) 0.3 Lymph # (Auto) 1.0 L [place] # (Auto) 0.1 Eos # (Auto) 0.2 Baso # (Auto) 0.0 Abs Immat Gran (auto) 0.05 H Absolute Neuts (auto) 9.6 H Absolute Nucleated RBC 0.040 H Nucleated RBC % (auto) 0.4 H Sodium 132 L Potassium 3.9 Chloride 103 Carbon Dioxide 23 Anion Gap 10 L BUN 32 H D Creatinine 0.67 Estim Creat Clear Calc 58.9 Estimated GFR > 60 Random Glucose 80 Lactic Acid 1.0 Calcium 8.5 D Magnesium Total Bilirubin 0.6 Direct Bilirubin 0.3 AST 80 H ALT 103 H Alkaline Phosphatase 238 H D Total Protein 5.5 L Albumin 2.9 L D Lipase Urine Color Urine Appearance Urine pH Ur Specific [place] Urine Protein Urine Glucose (UA) Urine Ketones Urine Blood Urine Nitrite Ur Leukocyte Esterase Urine RBC Urine WBC Ur Squamous Epith Cells Urine Bacteria Urine Mucus Coronavirus (PCR) Hepatitis A IgM Ab Hep Bs Antigen Hep Bs Antibody Hep B Core Total Ab Hepatitis C Ab (EIA) Influenza Type A (PCR) Influenza Type B (PCR) RSV RNA Qual (PCR) 05/15/20 05/15/20 05/16/20 22:26 22:26 02:13 WBC RBC Hgb Hct MCV MCH MCHC RDW Plt Count MPV Immature Gran % (Auto) Neut % (Auto) Lymph % (Auto) [place] % (Auto) Eos % (Auto) Baso % (Auto) Lymph # (Auto) [place] # (Auto) Eos # (Auto) Baso # (Auto) Abs Immat Gran (auto) Absolute Neuts (auto) Absolute Nucleated RBC Nucleated RBC % (auto) Sodium Potassium Chloride Carbon Dioxide Anion Gap BUN Creatinine Estim Creat Clear Calc Estimated GFR Random Glucose Lactic Acid Calcium Magnesium Total Bilirubin Direct Bilirubin AST ALT Alkaline Phosphatase Total Protein Albumin Lipase 37 Urine Color Urine Appearance Urine pH Ur Specific [place] Urine Protein Urine Glucose (UA) Urine Ketones Urine Blood Urine Nitrite Ur Leukocyte Esterase Urine RBC Urine WBC Ur Squamous Epith Cells Urine Bacteria Urine Mucus Coronavirus (PCR) NEGATIVE Hepatitis A IgM Ab Nonreactive Hep Bs Antigen Negative Hep Bs Antibody NONREACTIVE Hep B Core Total Ab Nonreactive Hepatitis C Ab (EIA) Nonreactive Influenza Type A (PCR) NEGATIVE Influenza Type B (PCR) NEGATIVE RSV RNA Qual (PCR) NEGATIVE 05/16/20 05/16/20 05/16/20 04:38 08:33 08:33 WBC 14.1 H RBC 3.56 L Hgb 10.1 L Hct 32.2 L MCV 90.4 MCH 28.4 MCHC 31.4 RDW 16.0 Plt Count 212 MPV 9.8 Immature Gran % (Auto) 0.4 Neut % (Auto) 69.7 Lymph % (Auto) 23.0 [place] % (Auto) 5.6 Eos % (Auto) 0.9 Baso % (Auto) 0.4 Lymph # (Auto) 3.2 [place] # (Auto) 0.8 Eos # (Auto) 0.1 Baso # (Auto) 0.1 Abs Immat Gran (auto) 0.06 H Absolute Neuts (auto) 9.9 H Absolute Nucleated RBC 0.030 H Nucleated RBC % (auto) 0.2 Sodium 136 Potassium 4.2 Chloride 108 Carbon Dioxide 23 Anion Gap 9 L BUN 23 H Creatinine 0.69 Estim Creat Clear Calc 57.2 Estimated GFR > 60 Random Glucose 82 Lactic Acid Calcium 8.4 Magnesium 1.8 Total Bilirubin Direct Bilirubin AST ALT Alkaline Phosphatase Total Protein Albumin Lipase Urine Color YELLOW Urine Appearance HAZY Urine pH 6.5 Ur Specific [place] 1.015 Urine Protein 1+ H Urine Glucose (UA) NEG Urine Ketones NEG Urine Blood TRACE Urine Nitrite NEG Ur Leukocyte Esterase NEG Urine RBC 1-4 Urine WBC 1-4 Ur Squamous Epith Cells 2+ Urine Bacteria 2+ Urine Mucus 2+ Coronavirus (PCR) Hepatitis A IgM Ab Hep Bs Antigen Hep Bs Antibody Hep B Core Total Ab Hepatitis C Ab (EIA) Influenza Type A (PCR) Influenza Type B (PCR) RSV RNA Qual (PCR) Preliminary micro results at discharge 05/15/20 22:26 Blood Culture - Preliminary Blood - Venous 05/15/20 22:25 Blood Culture - Preliminary Blood - Venous Discharge Plan Discharge Anticipated Discharge Date/Time: 05/16/20 11:11 Patient Disposition: [facility] Referrals: [facility] [Outside] Meghana Hess MD [Physician] - Discharge Medications: New piperacillin-tazobactam 3.375 gram Recon Soln 3.375 g IV Q6H Qty: 10 RF: 0 Continued polyethylene glycol 3350 17 gram powder in packet 1 packet PO DAILY RF: 0 lorazepam 0.5 mg tablet 1 tab PO BEDTIME PRN (Reason: anxiety) RF: 0 potassium citrate 10 mEq (1,080 mg) tablet extended release 2 tab PO BID RF: 0 lidocaine 5 % adhesive patch,medicated 1 patch topical DAILY RF: 0 lisinopril 5 mg tablet 0.5 tab PO DAILY RF: 0 gabapentin 100 mg capsule 2 cap PO BID RF: 0 ondansetron 4 mg tablet,disintegrating 1 tab PO BID PRN (Reason: Nausea) RF: 0 Eliquis 5 mg tablet 1 tab PO BID RF: 0 Discontinued nitrofurantoin macrocrystal 100 mg capsule 1 cap PO DAILY RF: 0 ibuprofen 600 mg tablet 1 tab PO TID PRN (Reason: pain) RF: 0 Discharge Orders: Discharge Order (Routine); Ordered 05/16/20 Ordered By: Vernon Ng Activity on Discharge: As tolerated Stand Alone Forms: Patient Portal Discharge page Care Plan Goals: treat sepsis Health Concerns: bactremia sepsis on TPN Plan of Treatment: transfer to [facility] for further care
--- NOTE | 2020-05-16 13:18 | MHC.CM.PN ---
Per Dr Ng, patient to transfer to [facility] when bed available. [facility] booked and put on hold. Med nec with chart. Continue to monitor for d/c needs.
[2020-05-16] MEDS: Apixaban 5 MG TABLET PO (14:43)
[2020-05-16] MEDS: Gabapentin 100 MG CAPSULE 200 MG PO (14:43)
--- NOTE | 2020-05-16 15:00 | PC.NURSE ---
REPORT GIVEN TO [facility] RN, PT TO BE TRANSFERRED TO [address]. [phone]. PT AWARE
--- NOTE | 2020-05-16 18:00 | PC.NURSE ---
AWAITING TRANSPORTATION. PT IN NAD AT THIS TIME, EATING DINNER.
--- NOTE | 2020-05-16 19:37 | PC.NURSE ---
AMBULANCE DUE TO ARRIVE. PT NOT APPEARING IN PYXIS FOR ABX WITHDRAWAL.
== END 2020-05-16 20:27 | disposition short-term general hospital (02) | DRG 314 ==
LOC: HO.ED 05-16 00:17 → HO.EDOVER 05-16 01:07 → HO.S3 05-16 12:30
PROVIDERS: Admitting Provider Hospitalist; Emergency Provider Emergency Medicine Emergency Medical Services; PCP Internal Medicine; Visit Provider Internal Medicine
DX: T80.211A Bloodstream infection due to central venous catheter, initial encounter (principal); A41.50 Gram-negative sepsis, unspecified; J18.9 Pneumonia, unspecified organism; R65.20 Severe sepsis without septic shock; C18.1 Malignant neoplasm of appendix; E44.0 Moderate protein-calorie malnutrition; F41.9 Anxiety disorder, unspecified; Z68.21 Body mass index [BMI] 21.0-21.9, adult; G62.9 Polyneuropathy, unspecified; I10 Essential (primary) hypertension; R74.01 Elevation of levels of liver transaminase levels; Z20.822 Contact with and (suspected) exposure to COVID-19; Z79.01 Long term (current) use of anticoagulants; Z79.899 Other long term (current) drug therapy
CPT/HCPCS: 0241U; 36415; 71045; 71275; 76705; 80048; 80076; 81001; 83605; 83690; 83735; 85025; 86704; 86706; 86709; 86803; 87040; 87077; 87186; 87205; 87340; 93005; 96365; 96368; 99284; 99291; J0692; J1650; J2543; J3370; Q9967

== ENCOUNTER 2021-01-07 09:02 | Outpatient (REF) | payer MEDICARE, SELFPAY ==
[2021-01-07 11:33] LABS: Hematocrit 39.6 % (37.0-47.0); Hemoglobin 12.8 g/dl (12.0-16.0); Mean Corpuscular HGB Conc 32.3 g/dl (31.0-35.0); Mean Corpuscular Hemoglobin 29.5 pg (27.0-33.0); Mean Corpuscular Volume 91.2 fL (80.0-98.0); Mean Platelet Volume 9.8 fL (9.4-12.3); Platelet Count 278 X10*3/uL (160-400); Red Blood Count 4.34 X10*6/uL (4.20-5.50); Red Cell Distribution Width 13.2 % (11.0-16.0); White Blood Count 5.4 X10*3/uL (4.8-10.8)
[2021-01-07 12:14] LABS: Alanine Aminotransferase 30 U/L (0-31); Albumin Level 4.2 g/dL (3.5-5.0); Alkaline Phosphatase 77 U/L (39-117); Anion Gap 14 (12-20); Aspartate Amino Transferase 30 U/L (5-31); Bilirubin Total 0.4 mg/dL (0.0-1.0); Blood Urea Nitrogen 23 mg/dL (9-16); Calcium 10.4 mg/dL (8.4-10.2); Carbon Dioxide 25 mmol/L (22-29); Chloride 107 mmol/L (96-108); Estimated Glomerular Filt Rate 59; Glucose Random 92 mg/dL (60-115); Potassium 4.5 mmol/L (3.3-5.1); Sodium 141 mmol/L (135-145)
== END 2021-01-07 09:03 | disposition home or self-care (01) ==
LOC: HO.HMGCLDS 09:02
PROVIDERS: PCP Internal Medicine; Visit Provider Internal Medicine
DX: C18.1 Malignant neoplasm of appendix (principal); I10 Essential (primary) hypertension
CPT/HCPCS: 36415; 80053; 85027

== ENCOUNTER 2021-07-10 12:46 | Outpatient (REF) | payer MEDICARE, SELFPAY ==
--- NOTE | ~2021-07-10 | XR_ITS ---
EXAMINATION: XR CHEST CLINICAL INFORMATION: Shortness of breath COMPARISON: Previous chest x-ray April 2020 TECHNIQUE: 2 views of the chest were obtained. FINDINGS: The cardiac and mediastinal contours are stable. There is elevation of the right hemidiaphragm. There is retrosternal subsegmental atelectasis probably in the right middle lobe. The lungs are otherwise clear. There is no pleural effusion or pneumothorax. There are degenerative changes of the spine. XR/XR chest 2V IMPRESSION: Stable elevation of the right hemidiaphragm. Retrosternal subsegmental atelectasis probably in the right middle lobe.
[2021-07-10 13:51] LABS: Hematocrit 39.4 % (37.0-47.0); Hemoglobin 13.3 g/dl (12.0-16.0); Mean Corpuscular HGB Conc 33.8 g/dl (31.0-35.0); Mean Corpuscular Hemoglobin 30.8 pg (27.0-33.0); Mean Corpuscular Volume 91.2 fL (80.0-98.0); Mean Platelet Volume 9.2 fL (9.4-12.3); Platelet Count 273 X10*3/uL (160-400); Red Blood Count 4.32 X10*6/uL (4.20-5.50); Red Cell Distribution Width 12.9 % (11.0-16.0); White Blood Count 6.9 X10*3/uL (4.8-10.8)
[2021-07-10 14:09] LABS: Alanine Aminotransferase 27 U/L (0-31); Albumin Level 4.3 g/dL (3.5-5.0); Alkaline Phosphatase 74 U/L (39-117); Anion Gap 13 (12-20); Aspartate Amino Transferase 29 U/L (5-31); Bilirubin Total 0.4 mg/dL (0.0-1.0); Blood Urea Nitrogen 18 mg/dL (9-16); Calcium 10.6 mg/dL (8.4-10.2); Carbon Dioxide 26 mmol/L (22-29); Chloride 102 mmol/L (96-108); Estimated Glomerular Filt Rate > 60; Glucose Random 88 mg/dL (60-115); Potassium 4.6 mmol/L (3.3-5.1); Sodium 136 mmol/L (135-145); Total Protein 7.4 g/dL (6.5-8.0)
[2021-07-10 14:31] LABS: B Type Natriuretic Peptide 40 pg/mL (<100)
== END 2021-07-10 12:47 | disposition home or self-care (01) ==
LOC: HO.HMGCLDS 12:46
PROVIDERS: Visit Provider Internal Medicine
DX: I10 Essential (primary) hypertension (principal); R06.02 Shortness of breath; R63.4 Abnormal weight loss
CPT/HCPCS: 36415; 71046; 80053; 83880; 85027

== ENCOUNTER 2021-07-19 16:29 | Emergency (ER) | payer MEDICARE, SELFPAY ==
--- NOTE | ~2021-07-19 | US_ITS ---
EXAMINATION: US VENOUS ULTRASOUND WITH DOPPLER LOWER EXTREMITY, LEFT CLINICAL INFORMATION: Pain. COMPARISON: Left knee radiograph 07/19/2021. TECHNIQUE: Ultrasound of the deep veins is performed from the hip to the calf with compression sonography and color and pulse Doppler assessment. Spectral analysis with color-flow imaging is performed. FINDINGS: There is normal venous compression and respiratory variation and augmented flow. The visualized common femoral vein, superficial femoral vein, profunda femoral vein, popliteal vein, and the trifurcation region shows no evidence of deep venous thrombosis. There is no significant popliteal fossa cyst. If the patient's symptoms persist, followup ultrasound in 5 days 7 days might be of value to exclude proximal propagation from a non-visualized calf vein. US/US venous duplex LE LT IMPRESSION: No DVT demonstrated in the left lower extremity.
--- NOTE | ~2021-07-19 | XR_ITS ---
EXAMINATION: XR KNEE, LEFT CLINICAL INFORMATION: Pain. COMPARISON: Right knee radiographs 08/23/2017. TECHNIQUE: AP, lateral, bilateral oblique radiographs of the left knee. FINDINGS: Medial compartment demonstrates mild joint space narrowing and mild osteophytosis with mild subchondral sclerosis of the medial tibial plateau. Mild scattered meniscal degenerative calcifications are noted. The lateral compartment demonstrates extensive meniscal degenerative calcifications along with mild osteophytosis. Mild lateral compartment joint space narrowing is noted. Mild osteophytosis of the patellofemoral compartment is visualized. No joint space effusion is visualized. Dystrophic calcifications are noted in the expected location of the lateral collateral ligament. XR/XR knee LT 3V IMPRESSION: *No acute abnormalities identified. *Chronic tricompartmental arthropathic changes. *Dystrophic calcification in the region of the lateral collateral ligament suspicious for chronic ligamentous injury. *Chronic bilateral degenerative meniscal calcifications. *No gross joint effusion.
[2021-07-19 16:48] VITALS: BP 141/69; PULSE 87; RESP 18; TEMP 37.2; O2SAT 99; BMI 27.0
--- NOTE | 2021-07-19 18:19 | ED_ITS ---
HPI - Extremity Injury (Lower) General Chief Complaint: Extremity Injury, Lower Stated Complaint: pain in back of L knee Source: patient Limitations: no limitations History of Present Illness HPI Narrative: 71-year-old female presents for left knee pain for approximately 3 weeks. States that she tripped on the step and twisted her knee, is complaining of worsening pain and swelling. She is having a difficult time ambulating. She is immunocompromised with history of appendiceal carcinoma. MD complaint: knee injury Onset (ago): week(s) (3) Type of Injury: unknown Place: home Severity: moderate Severity scale (1-10): 7 Relieving factors: nothing Exacerbating factors: weight bearing, movement and palpation Context: other (Stairs) Associated symptoms: swelling and able to partially bear weight Other symptoms: none Treatments prior to arrival: cold therapy, heat therapy and NSAIDS Related Data Home Medications Medication Instructions Recorded Confirmed ondansetron 4 mg disintegrating 1 tab PO BID PRN 05/16/20 07/10/21 tablet polyethylene glycol 3350 17 gram 1 packet PO DAILY 05/16/20 07/10/21 oral powder packet potassium citrate 10 mEq (1,080 2 tab PO BID 05/16/20 07/10/21 mg) tablet,extended release clindamycin 1 %-benzoyl peroxide 5 1 appl TOPICAL QAM 07/04/20 07/10/21 % topical gel docusate sodium 100 mg capsule 100 mg PO BID PRN 07/04/20 07/10/21 Previous Rx's Medication Instructions Recorded lisinopril 5 mg tablet 2.5 mg PO DAILY #45 tab 12/23/20 nitrofurantoin macrocrystal 100 mg 100 mg PO DAILY #90 cap 12/23/20 capsule ibuprofen 600 mg tablet 600 mg PO TID #90 tab 05/08/21 gabapentin 100 mg capsule 200 mg PO BID 90 Days #360 cap 06/04/21 lidocaine 5 % topical patch 1 patch TOPICAL DAILY #30 ea 07/10/21 lorazepam 0.5 mg tablet 0.5 mg PO DAILY #30 tab 07/10/21 oxycodone 5 mg tablet 5 mg PO Q4H PRN 3 Days #18 tab 07/19/21 Allergies Allergy/AdvReac Type Severity Reaction Status Date / Time No Known Allergies Allergy Verified 07/19/21 16:47 Review of Systems Review of Systems: Constitutional: No Fever, No Chills ENT/Mouth: No Ear Pain, No Hoarseness, No sore throat Eyes: No Eye Pain, No Swelling, No Redness, No Foreign Body Cardiovascular: No Chest Pain, No SOB Respiratory: No Cough, No Dyspnea Gastrointestinal: No Nausea, No Vomiting, No Diarrhea, No abdominal Pain Genitourinary: No Dysuria, No Hematuria Musculoskeletal: positive left knee pain, No Myalgias, No Joint Swelling Skin: No Skin lacerations, No rash Neuro: No Weakness, No Numbness, No Paresthesias, No Loss of Consciousness, No Dizziness, No Headache Psych: No Anxiety/Panic, No Depression Heme/Lymph: no easy bruising, no Lymphadenopathy Endocrine: No Polyuria, No Polydipsia Yes all other systems are reviewed and are negative [facility] Past Medical History Attestation statement: The following information was validated with the patient. Source: old records reviewed Medical History Abdominal distention Ascites Carcinoma of appendix HTN (hypertension) Hyperlipemia Nephrolithiasis Osteopenia Ovarian mass Portal vein thrombosis Postherpetic neuralgia Prolapse of bladder PTSD (post-traumatic stress disorder) Right renal stone SOB (shortness of breath) Weight loss Surgical History History of lithotripsy History of partial hysterectomy History of tubal ligation Family History Family History Father Renal cell carcinoma HTN (hypertension) Stroke Mother HTN (hypertension) CVD (cardiovascular disease) Afib Social History Social History Housing: House Alcohol intake: never Patient Tobacco Use Status: Never used Tobacco e-Cigarette/Vaping Use: Never Used Advance Directives: No Advance Directives Information Provided: Yes Current occupational status: retired Cognitive needs: No Hearing needs: No Vision needs: Yes Physical Exam Vital Signs: Vital Signs: Last Vital Signs Temp 98.9 F 07/19/21 16:48 Pulse 87 07/19/21 16:48 Resp 18 07/19/21 16:48 BP 141/69 H 07/19/21 16:48 Pulse Ox 99 07/19/21 16:48 BMI result Body Mass Index 27.0 Appearance: Alert. Oriented X3. Mild distress. Eyes: Pupils equal, round and reactive to light. ENT: Pharynx normal. Neck: Normal inspection. Neck supple. CVS: Normal heart rate and rhythm. Pulses normal. Respiratory: No respiratory distress. Breath sounds normal. Abdomen: Soft and nontender. Skin: Skin warm and dry. Normal skin color. Normal skin turgor. Extremities: No lower extremity edema. Decreased range of motion to left knee secondary to pain. Able to flex extend and internally and externally rotate passively. Popliteal tenderness to palpation. No calf tenderness or warmth noted. Brisk capillary refill in equal pulses bilaterally. Neuro: No motor deficit. No sensory deficit. Cranial nerves 2-12 intact. Course Course Course Narrative: 71-year-old female presents with left knee pain for approximately 3 weeks. Stated that she tripped down a step approximately 3 weeks ago. Pain has been worsening and now has pain behind the knee. Walking is difficult, she does have full range of motion but it is painful to bend flex and extend. Patient does not report any other injuries, denies fevers chills any new concerning symptoms. Patient is immunocompromised has a history of appendiceal carcinoma. Wells PE score 0. Well DVT score 2. Will order x-rays and duplex. Finding negative for DVT, indicative of osteoarthritis and calcifications to the ligaments. Patient will follow-up with Dr. Arreaga. Will provide pain management with oxycodone. Risks and benefits of this medication discussed in detail with patient and they verbalized understanding. Patient verbalized unde rstanding of and agrees to plan of care to discharge home. Verbalized understanding of signs and symptoms indicating need for emergent intervention MDM - Extremity Injury (Lower) MDM Narrative Medical decision making narrative: DVT Differential Diagnosis Differential diagnosis: Likely acute internal derangement of knee Medical Records Attestation: I reviewed the patient's medical records. Imaging Data Left knee x-ray: Attestation: I personally reviewed and interpreted this imaging study as follows: Radiologist's impression: EXAMINATION: XR KNEE, LEFT CLINICAL INFORMATION: Pain.? COMPARISON: Right knee radiographs 08/23/2017.? TECHNIQUE: AP, lateral, bilateral oblique radiographs of the left knee. FINDINGS: Medial compartment demonstrates mild joint space narrowing and mild osteophytosis with mild subchondral sclerosis of the medial tibial plateau. Mild scattered meniscal degenerative calcifications are noted. The lateral compartment demonstrates extensive meniscal degenerative calcifications along with mild osteophytosis. Mild lateral compartment joint space narrowing is noted. Mild osteophytosis of the patellofemoral compartment is visualized. No joint space effusion is visualized. Dystrophic calcifications are noted in the expected location of the lateral collateral ligament. XR/XR knee LT 3V IMPRESSION: *No acute abnormalities identified. *Chronic tricompartmental arthropathic changes. *Dystrophic calcification in the region of the lateral collateral ligament suspicious for chronic ligamentous injury. *Chronic bilateral degenerative meniscal calcifications. *No gross joint effusion. Left lower extremity venous duplex: Attestation: I personally reviewed and interpreted this imaging study as follows: Radiologist's impression: EXAMINATION:? US VENOUS ULTRASOUND WITH DOPPLER LOWER EXTREMITY, LEFT CLINICAL INFORMATION:? Pain. COMPARISON:? Left knee radiograph 07/19/2021. TECHNIQUE: Ultrasound of the deep veins is performed from the hip to the calf with compression sonography and color and pulse Doppler assessment. Spectral analysis with color-flow imaging is performed. FINDINGS: There is normal venous compression and respiratory variation and augmented flow. The visualized common femoral vein, superficial femoral vein, profunda femoral vein, popliteal vein, and the trifurcation region shows no evidence of deep venous thrombosis. ? There is no significant popliteal fossa cyst. If the patient's symptoms persist, followup ultrasound in 5 days 7 days might be of value to exclude proximal propagation from a non-visualized calf vein. US/US venous duplex LE LT IMPRESSION: No DVT demonstrated in the left lower extremity. Scores Wells DVT Active cancer (tx with in 6 mo or palliation): 1 Localized tenderness along distribution of deep veins: 1 Score: 2 2-tier Risk: likely risk (17-53%) 3-tier Risk: moderate risk (17%) Discharge Plan Discharge Clinical Impression: Calcification of knee ligament, Arthritis of knee, Meniscus degeneration Patient Disposition: Home, Self-Care Instructions: Osteoarthritis (ED), R.I.C.E. Treatment (ED) Additional Instructions: You were evaluated for left knee pain. X-rays indicate lateral collateral ligament calcifications, degenerative meniscus calcifications, and arthritis of the left knee. DVT study is negative. Please follow-up with orthopedics. I referred you to your prior surgeon Dr. Arreaga. Please call and request an appointment. I prescribed oxycodone. This medication is narcotic and has high risk for addiction and abuse. Do not drive or operate machinery while taking medication. Medication can cause drowsiness, increased risk for falls, delayed reaction time, and constipation. Please increase your MiraLax to twice a day to her bowel regimen. continue to take all other medications as directed. Please alternate Tylenol 650 mg every 6 hours and Motrin 600 mg every 6 hours as needed to help reduce inflammation and pain. Please use these medications before using oxycodone. Write down what time he take these medications to pr event accidental overdose. Rest, ice and elevate as needed for pain management and comfort. Follow up with Oncology as scheduled. Thank you for choosing this emergency department for evaluation. Please follow-up with primary care physician as needed. Return to the emergency department for any new, concerning, or worsening symptoms. Prescriptions: New oxycodone 5 mg tablet 5 mg PO Q4H PRN (Reason: pain) 3 Days Qty: 18 0RF Rx Instructions: Severe osteoarthritis No Action lisinopril 5 mg tablet 2.5 mg PO DAILY Qty: 45 3RF nitrofurantoin macrocrystal 100 mg capsule 100 mg PO DAILY Qty: 90 3RF ibuprofen 600 mg tablet 600 mg PO TID Qty: 90 4RF gabapentin 100 mg capsule 200 mg PO BID 90 Days Qty: 360 3RF polyethylene glycol 3350 17 gram powder in packet 1 packet PO DAILY 0RF potassium citrate 10 mEq (1,080 mg) tablet extended release 2 tab PO BID 0RF ondansetron 4 mg tablet,disintegrating 1 tab PO BID PRN (Reason: Nausea) 0RF clindamycin-benzoyl peroxide 1-5 % gel 1 appl topical QAM 0RF docusate sodium 100 mg capsule 100 mg PO BID PRN (Reason: constipation) 0RF lorazepam 0.5 mg tablet 0.5 mg PO DAILY Qty: 30 0RF lidocaine 5 % adhesive patch,medicated 1 patch topical DAILY Qty: 30 5RF Referrals: Jairo Arreaga MD [Physician] - (Right knee tricompartmental arthropathy, dystrophic calcification the lateral collateral ligament, chronic bilateral degenerative meniscal calcifications) Interventions: ED Discharge Assessment Last Done: 07/19/21 22:29 Discharge Date/Time: 07/19/21 22:31
[2021-07-19] MEDS: oxyCODONE HCl Immed Release 5 MG TABLET PO ×2 (19:13→21:42)
== END 2021-07-19 22:31 | disposition home or self-care (01) ==
PROVIDERS: Emergency Provider Internal Medicine; PCP Internal Medicine
DX: M23.8X2 Other internal derangements of left knee (principal); M23.307 Other meniscus derangements, unspecified meniscus, left knee; M17.12 Unilateral primary osteoarthritis, left knee; M79.605 Pain in left leg; I10 Essential (primary) hypertension
CPT/HCPCS: 73562; 93971; 99282; 99284

== ENCOUNTER → 2021-07-30 12:50 | Outpatient (BNVA) | payer MEDICARE, SELFPAY | PROVIDERS: PCP Internal Medicine; Visit Provider Orthopaedic Surgery | DX: M17.12 Unilateral primary osteoarthritis, left knee (principal) | CPT/HCPCS: 20610; 99212; J1100 ==

== ENCOUNTER → 2021-09-28 13:30 | Outpatient (BNVA) | payer MEDICARE, SELFPAY | PROVIDERS: PCP Internal Medicine; Visit Provider Orthopaedic Surgery | DX: M25.562 Pain in left knee (principal); M17.12 Unilateral primary osteoarthritis, left knee | CPT/HCPCS: 20610; 99212; J7325 ==

== ENCOUNTER → 2021-12-25 10:20 | Outpatient (BNVA) | payer MEDICARE, SELFPAY | PROVIDERS: PCP Internal Medicine; Visit Provider Orthopaedic Surgery | DX: M17.11 Unilateral primary osteoarthritis, right knee (principal); M17.12 Unilateral primary osteoarthritis, left knee | CPT/HCPCS: 20610; 99212; J1100 ==

== ENCOUNTER 2022-04-01 11:34 | Outpatient (REF) | payer MEDICARE, SELFPAY ==
--- NOTE | ~2022-04-01 | MM_ITS ---
EXAMINATION: MM SCREENING DIGITAL BREAST TOMOSYNTHESIS, BILATERAL CLINICAL INFORMATION: Screening. Asymptomatic. COMPARISON: Mammography: October 20, 2019 and studies dating back to November 29, 2012 TECHNIQUE: Digital breast tomosynthesis is performed in both the craniocaudal and mediolateral oblique views along with computer-aided detection (CAD). Synthesized 2D images are generated from the tomosynthesis. FINDINGS: The breasts are extremely dense, which lowers the sensitivity of mammography (ACR BI-RADS breast composition Category d). There are no significant masses, abnormal calcifications, or other abnormalities. MM/MM tomosynthesis screening BI IMPRESSION: No significant changes from prior exam. ASSESSMENT: BI-RADS 1: Negative RECOMMENDATION: Routine annual mammography screening. This patient's information was entered into a reminder system with a target due date for their next mammogram.
== END 2022-04-01 11:35 | disposition home or self-care (01) ==
LOC: HO.MAMMO 11:34
PROVIDERS: PCP Internal Medicine; Visit Provider Internal Medicine
DX: Z12.31 Encounter for screening mammogram for malignant neoplasm of breast (principal)
CPT/HCPCS: 77063; 77067

== ENCOUNTER → 2022-05-10 12:20 | Outpatient (BNVA) | payer MEDICARE, SELFPAY | PROVIDERS: PCP Internal Medicine; Visit Provider Orthopaedic Surgery | DX: M17.0 Bilateral primary osteoarthritis of knee (principal) | CPT/HCPCS: 20610; 99212; J1100 ==

== ENCOUNTER 2022-11-05 11:21 | Outpatient (AMB) | payer MEDICARE, SELFPAY ==
--- NOTE | 2022-11-05 11:25 | MHC.OFFVIS ---
Intake Vital Signs 11/05/22 11:26 Height 5 ft 1 in Weight 153 lb BMI 28.9 Intake Visit Reasons: OV - Bilateral Knee Injections - last 05/10/22 Intake Note: Yulia is a 72 year old female who presents today with complaints of bilateral knee pain. Last Injection done 05/10/22. The injections were helpful and she would like to repeat today Allergies No Known Allergies Allergy (Verified 11/05/22 11:26) HPI OV - Bilateral Knee Injections - last 05/10/22 HPI Details Yulia is a 72 year old woman with bilateral knee OA. She was last seen, and injected bilaterally, on 05/10/22, with good relief. She says her pain has returned and she would like to repeat injections today. She is interested in discussing PRP injections. [facility] Medical History SOB (shortness of breath) Nephrolithiasis Hyperlipemia Postherpetic neuralgia Weight loss Portal vein thrombosis Carcinoma of appendix Prolapse of bladder Abdominal distention HTN (hypertension) PTSD (post-traumatic stress disorder) Osteopenia Right renal stone Surgical History History of hernia surgery History of partial hysterectomy History of lithotripsy History of tubal ligation Family History Father Renal cell carcinoma HTN (hypertension) Stroke Mother HTN (hypertension) CVD (cardiovascular disease) Afib Social History Housing: House Alcohol intake: never Patient Tobacco Use Status: Never used Tobacco e-Cigarette/Vaping Use: Never Used Current occupational status: retired Cognitive needs: No Hearing needs: No Vision needs: Yes Review of Systems Const All systems reviewed & are unremarkable except as noted in HPI and below Physical Exam Vital Signs: BMI result Body Mass Index 28.9 Const General: no acute distress, alert and awake Orientation/consciousness: patient oriented x3 HEENT Head: Yes normocephalic and Yes atraumatic Eyes EOM: EOMs intact bilaterally Resp Effort & Inspection: normal respiratory effort and able to speak in complete sentences Cardio Jugular venous distension: no JVD Skin General skin exam: turgor normal Rashes: no rashes Neuro General: patient oriented x3 Extrem Other: Bilateral Knees: TTP medial compartment Psych Appearance: grossly normal Affect: normal affect Attitude: cooperative Office Procedures Joint Injection/Drain Joint Injection/Drain Details: Injected 1 mL of Decadron and 3 mL 1% lidocaine and 3 mL of 0.25% Marcaine. Site was prepped using aseptic technique. Patient tolerated the procedure well. Primary Site: right knee Secondary Site: left knee Approach Used: anterolateral Coding - Large joint - Glenohumeral/Tronchanteric Bursa/Intraarticular Procedure code (CPT) selection complete Results Reviewed Results Reviewed: 11/05/22 11:23 BUPivacaine MPF 0.25 % [Sensorcaine-MPF 0.25% 10 ML] 10 ml .ROUTE .STK-MED ONE Lidocaine HCl 1 % [Xylocaine 1 %] 2 ml .ROUTE .STK-MED ONE Lidocaine HCl 2 % MPF [Xylocaine 2 % MPF] 5 ml .ROUTE .STK-MED ONE dexAMETHasone sod phosphate [Decadron] 4 mg .ROUTE .STK-MED ONE Assessment & Plan Assessment & Plan (1) Osteoarthritis of right knee: Code(s): M17.11 - Unilateral primary osteoarthritis, right knee Plan: This is a 71 year old woman with right knee OA. She has pain with daily activity, and a Hx of good relief from both viscosupplementation and steroid injections in the past, her most recent steroid injection was on 05/10/22. She is not interested in surgery at this time. I injected her bilateral knees today, which she tolerated well. She can follow up prn. We discussed PRP injections today and she is interested in learning more about this treatment. (2) Osteoarthritis of left knee: Code(s): M17.12 - Unilateral primary osteoarthritis, left knee Plan: Left knee OA. S/P synvisc injection on 09/28/21 & steroid injection 05/10/22. Injected today. Plan Scribed for Jairo Arreaga MD by Aldair Torres, certified ophthalmic medical technician, on 11/05/22 at 12:05 PM, EST. Coding Level of Care Code Est Pt Level 3 (91087) Diagnoses Osteoarthritis of right knee M17.11 Osteoarthritis of left knee M17.12 CPT Codes Coding - Large joint: 49211 - Large joint ([id number]) Coding - Joint 7: 99013 - Glenohumeral/Tronchanteric Bursa/Intraarticular ([id number])
[2022-11-05 11:26] VITALS: BMI 28.9
== END 2022-11-05 12:17 | disposition home or self-care (01) ==
PROVIDERS: PCP Internal Medicine; Visit Provider Orthopaedic Surgery
DX: M17.0 Bilateral primary osteoarthritis of knee (principal)
CPT/HCPCS: 20610; 99213

== ENCOUNTER → 2022-11-05 11:21 | Outpatient (BNVA) | payer MEDICARE, SELFPAY | PROVIDERS: PCP Internal Medicine; Visit Provider Orthopaedic Surgery | DX: M17.0 Bilateral primary osteoarthritis of knee (principal) | CPT/HCPCS: 20610; 99212; J1100 ==

== ENCOUNTER 2023-01-06 09:10 | Outpatient (REF) | payer MEDICARE, SELFPAY ==
[2023-01-06 11:23] LABS: MANUAL DIFF FLAG NO
[2023-01-06 11:41] LABS: Basophils Percent Auto 0.4 % (0-2); Eosinophils Absolute Auto 0.2 X10*3/uL (0.0-0.4); Eosinophils Percent Auto 3.1 % (0-4); Hematocrit 42.3 % (37.0-47.0); Imm Gran Abs Auto 0.01 X10*3/uL (0.00-0.03); Imm Gran Pct Auto 0.1 % (0.0-0.4); Lymphocytes Absolute Auto 2.9 X10*3/uL (1.2-4.9); Lymphocytes Percent Auto 42.5 % (20-40); Mean Corpuscular HGB Conc 33.1 g/dl (31.0-35.0); Mean Corpuscular Hemoglobin 30.8 pg (27.0-33.0); Mean Platelet Volume 9.4 fL (9.4-12.3); Monocytes Absolute Auto 0.6 X10*3/uL (0.1-1.2); Monocytes Percent Auto 8.1 % (2-11); Neutrophils Absolute Auto 3.1 x10*3/uL (2.0-8.3); Neutrophils Percent Auto 45.8 % (45-73); Platelet Count 334 X10*3/uL (160-400); Red Blood Count 4.55 X10*6/uL (4.20-5.50); Red Cell Distribution Width 12.8 % (11.0-16.0); White Blood Count 6.8 X10*3/uL (4.8-10.8)
[2023-01-06 12:13] LABS: Alanine Aminotransferase 22 U/L (0-31); Albumin Level 4.3 g/dL (3.5-5.0); Alkaline Phosphatase 86 U/L (39-117); Anion Gap 12 (12-20); Aspartate Amino Transferase 26 U/L (5-31); Bilirubin Total 0.4 mg/dL (0.0-1.0); Blood Urea Nitrogen 17 mg/dL (9-16); Calcium 10.3 mg/dL (8.4-10.2); Carbon Dioxide 27 mmol/L (22-29); Chloride 106 mmol/L (96-108); Cholesterol 197 mg/dL (<200); Estimated Glomerular Filt Rate > 60; Glucose Fasting 84 mg/dL (60-99); HDL Cholesterol 51 mg/dL (>40); LDL Cholesterol Calculated 103 mg/dL (<100); Potassium 4.4 mmol/L (3.3-5.1); Sodium 141 mmol/L (135-145); Total Protein 7.8 g/dL (6.5-8.0); Triglycerides 218 mg/dL (<150)
[2023-01-06 12:22] LABS: TSH reflex Free T4 0.95 uIU/mL (0.32-4.0)
== END 2023-01-06 09:11 | disposition home or self-care (01) ==
LOC: HO.HMGCLDS 09:10
PROVIDERS: PCP Internal Medicine; Visit Provider Internal Medicine
DX: K43.9 Ventral hernia without obstruction or gangrene (principal); E78.5 Hyperlipidemia, unspecified; I10 Essential (primary) hypertension
CPT/HCPCS: 36415; 80053; 80061; 84443; 85025

== ENCOUNTER 2023-01-10 11:47 | Outpatient (AMB) | payer MEDICARE, SELFPAY ==
--- NOTE | 2023-01-10 11:53 | MHC.PC.OV ---
Vital Signs 01/10/23 11:54 Height 5 ft 1 in Weight 157 lb BMI 29.7 BP 120/80 Blood Pressure Location Lt brachial Position Sitting Pulse 83 Pulse Source Pulse Oximeter Pulse Oximetry (%) 95 Oxygen Delivery Method Room Air Intake Visit Reasons: 6m follow up Allergies No Known Allergies Allergy (Verified 01/10/23 11:55) Medication List - Last Reconciled 01/10/23 by Meghana Hess MD docusate sodium 100 mg PO BID PRN gabapentin 200 mg (2 x 100 mg) PO BID 90 days ibuprofen 600 mg PO TID lidocaine 5% 2 patches topical DAILY 30 days lisinopril 2.5 mg (1/2 x 5 mg) PO DAILY lorazepam 0.5 mg PO DAILY nitrofurantoin macrocrystal 100 mg PO DAILY polyethylene glycol 3350 17 grams PO DAILY potassium citrate ER 20 mEq (2 x 10 mEq (1,080 mg)) PO BID 30 days Tobacco use date assessed: 07/12/22 Fall risk assessment: No Falls in past year Last assessed Fall Risk: 01/10/23 HPI 6m follow up HPI Details Pt presents for HTN, stable on Lisinopril. Pt c/o chronic L knee pain , had cortisone inj without relief. Pt has been taking Ibuprofen 600 mg bid for arthritis. Patient's daughter is legally blind because of retinal stroke. [facility] Medical History SOB (shortness of breath) Nephrolithiasis Hyperlipemia Postherpetic neuralgia Weight loss Portal vein thrombosis Carcinoma of appendix Prolapse of bladder Abdominal distention HTN (hypertension) PTSD (post-traumatic stress disorder) Osteopenia Right renal stone Surgical History History of hernia surgery History of partial hysterectomy History of lithotripsy History of tubal ligation Family History Father Renal cell carcinoma HTN (hypertension) Stroke Mother HTN (hypertension) CVD (cardiovascular disease) Afib Social History Housing: House Alcohol intake: never Patient Tobacco Use Status: Never used Tobacco e-Cigarette/Vaping Use: Never Used Current occupational status: retired Cognitive needs: No Hearing needs: No Vision needs: Yes Questionnaire Thrive Questionnaire Date Thrive assessed: 07/12/22 JESSICA-7 AMB Questionnaire JESSICA-7 Date JESSICA - 7 assessed: 07/12/22 Source: Developed by Drs. Micha Butts, Catalina Hernandez, Richard Trujillo and colleagues, with an educational cecil from [employer]. Review of Systems Const All systems reviewed & are unremarkable except as noted in HPI and below Reports no additional complaints Eyes Reports no additional complaints ENT Reports no additional complaints Card Reports no additional complaints Resp Reports no additional complaints GI Reports no additional complaints Physical exam (Primary Care) Vital Signs: Last Vital Signs Pulse 83 01/10/23 11:54 BP 120/80 01/10/23 11:54 Pulse Ox 95 01/10/23 11:54 Oxygen Delivery Method Room Air 01/10/23 11:54 BMI result Body Mass Index 29.7 Tobacco/Smoking Status: Tobacco use Status Tobacco use date assessed 07/12/22 01/10/23 11:58 Patient Tobacco Use Status Never used Tobacco 01/10/23 11:58 e-Cigarette/Vaping Use Never Used 01/10/23 11:58 Thrive Assessment: Date of Thrive Assessment Date Thrive assessed 07/12/22 01/10/23 11:58 Const General: no acute distress HENMT Head: Yes normal to inspection Face and sinus: Yes normal facial exam Throat: Yes posterior oropharynx normal Eyes General: appearance normal, both eyes and all related structures Neck Neck: Yes no lymphadenopathy and Yes supple Resp Effort & Inspection: normal respiratory effort Auscultation: clear to auscultation bilaterally Cardio Rhythm: regular rhythm Heart sounds: S1 normal heart sound present and S2 normal heart sound present GI Inspection: Yes normal to inspection Palpation (GI): Soft to palpation Percussion: Yes normal to percussion Auscultation: normal bowel sounds Assessment and Plan Assessment & Plan (1) Postmenopausal: Comment: last DEXA 2010 Code(s): Z78.0 - Asymptomatic menopausal state Plan: Schedule DEXA (2) Hyperlipemia: Code(s): E78.5 - Hyperlipidemia, unspecified Plan: Continue low-cholesterol diet (3) HTN (hypertension): Comment: goal <130/80 Code(s): I10 - Essential (primary) hypertension Plan: Continue lisinopril (4) Osteoarthritis of right knee: Code(s): M17.11 - Unilateral primary osteoarthritis, right knee Plan: Try Celebrex instead of ibuprofen and patient was advised to use topical remedies and regular exercise instead of taking medications daily Orders: Orders XR DEXA axial skeleton Today Z78.0 - Asymptomatic menopausal state Comprehensive Walker. Panel Fast 6 Months E78.5 - Hyperlipidemia, unspecified, I10 - Essential (primary) hypertension Complete Blood Count Auto Diff 6 Months E78.5 - Hyperlipidemia, unspecified, I10 - Essential (primary) hypertension Lipid Panel 6 Months E78.5 - Hyperlipidemia, unspecified, I10 - Essential (primary) hypertension Vitamin D 25-OH Total 6 Months E78.5 - Hyperlipidemia, unspecified, I10 - Essential (primary) hypertension Medications: New celecoxib (Celebrex) 200 mg PO BID 60 caps 4RF Changed From lidocaine 5% 2 patches topical DAILY 30 days 60 ea 5RF To lidocaine 5% 2 patches topical DAILY 90 days 270 ea 5RF Coding Level of Care Code Est Pt Level 4 (85888) Diagnoses Postmenopausal Z78.0 Hyperlipemia E78.5 HTN (hypertension) I10 Osteoarthritis of right knee M17.11
[2023-01-10 11:54] VITALS: BP 120/80; PULSE 83; O2SAT 95; BMI 29.7
== END 2023-01-10 12:54 | disposition home or self-care (01) ==
PROVIDERS: Visit Provider Internal Medicine
DX: Z78.0 Asymptomatic menopausal state (principal); E78.5 Hyperlipidemia, unspecified; I10 Essential (primary) hypertension; M17.11 Unilateral primary osteoarthritis, right knee
CPT/HCPCS: 99214

== ENCOUNTER 2023-04-05 13:08 | Outpatient (REF) | payer MEDICARE, SELFPAY ==
--- NOTE | ~2023-04-05 | MM_ITS ---
EXAMINATION: BONE DENSITOMETRY CLINICAL INDICATION: Asymptomatic menopausal state. COMPARISON: Previous BD dated 03/10/2017 and baseline BD dated 10/23/2010. TECHNIQUE: Using a Taste Filter DXA System (software version: 13.1) manufactured by [employer], dual-energy x-ray absorptiometry was performed of the lumbar spine and left hip. The images are of good technical quality. Summary results are attached. FINDINGS: AP SPINE L1-L3 (excluding L4): The data of L1-L4 has been changed to exclude the L4 vertebral body, because degenerative sclerosis at this level may cause overestimation of lumbar spine density. Current: BMD 1.139 g/cm2, Z-score 1.3, T-score -0.3, normal, 4.8% increase from previous, 7.7% increase from baseline (<5% change is not significant). Prior: BMD 1.087 g/cm2. Baseline: BMD 1.058 g/cm2. LEFT FEMUR, NECK: Current: BMD 0.838 g/cm2, Z-score 0.3, T-score -1.4, osteopenia. Prior: BMD 0.785 g/cm2. Baseline: BMD 0.922 g/cm2. LEFT FEMUR, TOTAL: Current: BMD 0.933 g/cm2, Z-score 0.9, T-score -0.6, normal, 6.4% increase from previous, 6.0% decrease from baseline (<5% change is not significant). Prior: BMD 0.877 g/cm2. Baseline: BMD 0.993 g/cm2. IDENTIFIED RISK FACTORS: Secondary osteoporosis (early menopause). Hysterectomy. Bilateral oophorectomy. HISTORY OF FRACTURE: None listed. MEDICATIONS: Calcium supplement and/or multivitamin. Vitamin D. MM/XR DEXA axial skeleton IMPRESSION: 1. DIAGNOSIS: Osteopenia based on the lowest T-score value of -1.4 in the femoral neck applying World Health Organization criteria. 2. 10-YEAR FRACTURE RISK PREDICTION, FRAX: Major osteoporotic fracture (clinical spine, forearm, hip or shoulder) 10.5%. Hip fracture 1.8%. 3. Treatment Recommendations: NOF guidelines recommend consideration for treatment in postmenopausal women and men age 50 and older presenting with the following: -A hip or vertebral (clinical or morphometric) fracture. -T-score less than or equal to -2.5 at the femoral neck or spine after appropriate evaluation to exclude secondary causes. -Low bone mass at the hip or spine and a 10-year fracture probability by FRAX of greater than or equal to 3% for hip fracture or greater than or equal to 20% for major osteoporotic fracture based on the [place] adapted WHO algorithm. 4. Other Recommendations: All treatment decisions require clinical judgment and consideration of individual patient factors, including patient preferences, comorbidities, previous drug use, risk factors not captured in the FRAX model (e.g. frailty, falls, vitamin D deficiency, increased bone turnover, interval significant decline in bone density) and possible under or overestimation of fracture risk by FRAX. Additional medical evaluation for secondary cause of low bone mineral density may be appropriate. FUTURE SCAN RECOMMENDATION: People with diagnosed cases of osteoporosis or at high risk for fracture should have regular bone mineral density tests. For patients eligible for Medicare, routine testing is allowed once every 2 years. The testing frequency can be increased to one year for patients who have rapidly progressing disease, those who are receiving or discontinuing medical therapy to restore bone mass, or have additional risk factors.
== END 2023-04-05 13:09 | disposition home or self-care (01) ==
LOC: HO.MAMMO 13:08
PROVIDERS: PCP Internal Medicine; Visit Provider Internal Medicine
DX: Z12.31 Encounter for screening mammogram for malignant neoplasm of breast (principal); Z13.820 Encounter for screening for osteoporosis; Z78.0 Asymptomatic menopausal state
CPT/HCPCS: 77063; 77067; 77080

== ENCOUNTER → 2023-04-05 14:15 | Outpatient (BNV) | payer MEDICARE, SELFPAY | PROVIDERS: PCP Internal Medicine; Visit Provider Radiology Diagnostic Radiology | DX: Z12.31 Encounter for screening mammogram for malignant neoplasm of breast (principal) | CPT/HCPCS: 77063; 77067 ==

== ENCOUNTER 2023-04-25 11:00 | Outpatient (AMB) | payer MEDICARE, SELFPAY ==
--- NOTE | 2023-04-25 11:05 | A.OFFVIS_ITS ---
Intake Intake Visit Reasons: OV- B/L Knee Injections-last inj 11/05/22 Intake Note: Yulia is a 72 year old female who presents to the office today for bilateral knee injections. Her last injection was 11/05/22. Pt states the injections have been helping her. Allergies No Known Allergies Allergy (Verified 04/25/23 11:05) HPI OV- B/L Knee Injections-last inj 11/05/22 HPI Details Yulia is a 72 year old woman with bilateral knee OA, who presents to discuss repeat steroid injections. She was last seen, and injected bilaterally, on 11/05/22, with good relief. [facility] Medical History SOB (shortness of breath) Nephrolithiasis Hyperlipemia Postherpetic neuralgia Weight loss Portal vein thrombosis Carcinoma of appendix Prolapse of bladder Abdominal distention HTN (hypertension) PTSD (post-traumatic stress disorder) Osteopenia Right renal stone Surgical History History of hernia surgery History of partial hysterectomy History of lithotripsy History of tubal ligation Family History Father Renal cell carcinoma HTN (hypertension) Stroke Mother HTN (hypertension) CVD (cardiovascular disease) Afib Social History Housing: House Alcohol intake: never Patient Tobacco Use Status: Never used Tobacco e-Cigarette/Vaping Use: Never Used Current occupational status: retired Cognitive needs: No Hearing needs: No Vision needs: Yes Review of Systems Const All systems reviewed & are unremarkable except as noted in HPI and below Physical Exam Const General: no acute distress, alert and awake Orientation/consciousness: patient oriented x3 HEENT Head: Yes normocephalic and Yes atraumatic Eyes EOM: EOMs intact bilaterally Resp Effort & Inspection: normal respiratory effort and able to speak in complete sentences Cardio Jugular venous distension: no JVD Skin General skin exam: turgor normal Rashes: no rashes Neuro General: patient oriented x3 Extrem Other: Bilateral Knees: TTP medial compartment Psych Appearance: grossly normal Affect: normal affect Attitude: cooperative Assessment & Plan Assessment & Plan (1) Osteoarthritis of right knee: Code(s): M17.11 - Unilateral primary osteoarthritis, right knee Plan: Injected bilateral knees Continue activity as tolerated (2) Osteoarthritis of left knee: Code(s): M17.12 - Unilateral primary osteoarthritis, left knee Plan Prepared for Jairo Arreaga MD by Aldair Torres, medical director occupational health, on 04/25/2410:10 AM at [ ], EST. Coding Level of Care Code Est Pt Level 3 (51819) Diagnoses Osteoarthritis of right knee M17.11 Osteoarthritis of left knee M17.12
== END 2023-04-25 11:26 | disposition home or self-care (01) ==
PROVIDERS: PCP Internal Medicine; Visit Provider Orthopaedic Surgery
DX: M17.0 Bilateral primary osteoarthritis of knee (principal)
CPT/HCPCS: 20610; 99213

== ENCOUNTER → 2023-04-25 11:00 | Outpatient (BNVA) | payer MEDICARE, SELFPAY | PROVIDERS: PCP Internal Medicine; Visit Provider Orthopaedic Surgery | DX: M17.0 Bilateral primary osteoarthritis of knee (principal) | CPT/HCPCS: 20610; 99212; J0665; J1100 ==

== ENCOUNTER 2023-07-13 12:18 | Outpatient (AMB) | payer MEDICARE, SELFPAY ==
[2023-07-13 13:12] VITALS: BP 126/80; PULSE 77; O2SAT 98; BMI 29.1
--- NOTE | 2023-07-13 13:12 | A.OFFPC_ITS ---
Vital Signs 07/13/23 13:12 Height 5 ft 1 in Weight 154 lb BMI 29.1 BP 126/80 Blood Pressure Location Lt brachial Position Sitting Pulse 77 Pulse Source Pulse Oximeter Pulse Oximetry (%) 98 Oxygen Delivery Method Room Air Intake Visit Reasons: 6 Month F/U and Annual PE Intake Note: Pt is here today for for PE. Allergies No Known Allergies Allergy (Verified 07/13/23 13:13) Medication List - Last Reconciled 07/13/23 by Meghana Hess MD cephalexin 250 mg PO QID docusate sodium 100 mg PO BID PRN gabapentin 200 mg (2 x 100 mg) PO BID 90 days ibuprofen 600 mg PO TID lidocaine 5% 2 patches topical DAILY 90 days lisinopril 2.5 mg (1/2 x 5 mg) PO DAILY lorazepam 0.5 mg PO DAILY polyethylene glycol 3350 17 grams PO DAILY potassium citrate ER 20 mEq (2 x 10 mEq (1,080 mg)) PO BID 30 days Tobacco use date assessed: 07/13/23 Fall risk assessment: No Falls in past year Last assessed Fall Risk: 07/13/23 Dental Screening Dental Screen Date: 07/13/23 Did you have a dental visit in the last 12 months?: Yes Did you have a dental problem in the last 6 months where you did not have access to dental care?: No Was dental information given to patient?: Patient has dentist HPI 6 Month F/U and Annual PE HPI Details Pt presents for PE. Hypertension is controlled on lisinopril. 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 PFSH Medical History SOB (shortness of breath) Nephrolithiasis Hyperlipemia Postherpetic neuralgia Weight loss Portal vein thrombosis Carcinoma of appendix Prolapse of bladder Abdominal distention HTN (hypertension) PTSD (post-traumatic stress disorder) Osteopenia Right renal stone Surgical History History of hernia surgery History of partial hysterectomy History of lithotripsy History of tubal ligation Family History Father Renal cell carcinoma HTN (hypertension) Stroke Mother HTN (hypertension) CVD (cardiovascular disease) Afib Social History Housing: House Alcohol intake: never Patient Tobacco Use Status: Never used Tobacco e-Cigarette/Vaping Use: Never Used service: No Current occupational status: retired Cognitive needs: No Hearing needs: No Vision needs: Yes Questionnaire PHQ-9 Over the last 2 weeks, how often have you been bothered by any of the following problems? 1. Little interest or pleasure in doing things: not at all 2. Feeling down, depressed, or hopeless: not at all 3. Trouble falling or staying asleep, or sleeping too much: not at all 4. Feeling tired or having little energy: not at all 5. Poor appetite or overeating: not at all 6. Feeling bad about yourself - or that you are a failure or have let yourself or your family down: not at all 7. Trouble concentrating on things, such as reading the newspaper or watching television: not at all 8. Moving or speaking so slowly that other people could have noticed. Or the opposite - being so fidgety or restless that you have been moving around a lot more than usual: not at all 9. Thoughts that you would be better off or of hurting yourself in some way: not at all Total score: 0 Depression Screening Interpretation: Negative Depression Screening Done: Yes Source: Developed by Drs. Micha Butts, Catalina Hernandez, Richard Trujillo and colleagues, with an educational cecil from [employer]. Thrive Questionnaire Date Thrive assessed: 07/13/23 I am a: Patient What is your living situation today?: I have a steady place to live Within the past 12 months, did the food you bought not last and you didn't have the money to get more?: Never true Within the past 12 months, did you worry whether your food would run out before you got money to buy more?: Never true Do you have trouble paying for medicines?: No Do you have trouble getting transportation to medical appointments?: No Do you have trouble paying your heating and electricity bill?: No Do you have trouble taking care of your child, family member or friend?: No Do you have trouble with day-to-day activities such as bathing, preparing meals, shopping, managing finances, etc.?: No Are you currently unemployed and looking for a job?: No Are you interested in more education?: No Please select the resources that you would like help with: None THRIVE Score: 0 AUDIT C Alcohol Use Questionnaire (AUDIT-C) 1. How often do you have a drink containing alcohol?: Never 3. How often do you have six or more drinks on one occasion?: Never Total Score: 0 JESSICA-7 AMB Questionnaire JESSICA-7 Date JESSICA - 7 assessed: 07/13/23 Feeling nervous, anxious, or on edge: 0 = Not at all Not being able to stop or control worryin = Not at all Worrying too much about different things: 0 = Not at all Trouble relaxin = Not at all Being so restless that it is hard to sit still: 0 = Not at all Becoming easily annoyed or irritable: 0 = Not at all Feeling afraid as if something awful might happen: 0 = Not at all Total JESSICA-7 score (0-4 normal; 5-9 mild; 10-14 moderate; 15-21 severe): 0 Source: Developed by Drs. Micha Butts, Catalina Hernandez, Richard Trujillo and colleagues, with an educational cecil from [employer]. Review of Systems Const All systems reviewed & are unremarkable except as noted in HPI and below Reports no additional complaints Eyes Reports no additional complaints ENT Reports no additional complaints Card Reports no additional complaints Resp Reports no additional complaints GI Reports no additional complaints Reports no additional complaints Musc Reports no additional complaints Physical exam (Primary Care) Vital Signs: Last Vital Signs Pulse 77 07/13/23 13:12 BP 126/80 07/13/23 13:12 Pulse Ox 98 07/13/23 13:12 Oxygen Delivery Method Room Air 07/13/23 13:12 BMI result Body Mass Index 29.1 Tobacco/Smoking Status: Tobacco use Status Tobacco use date assessed 07/13/23 07/13/23 13:14 Patient Tobacco Use Status Never used Tobacco 07/13/23 13:14 e-Cigarette/Vaping Use Never Used 07/13/23 13:13 PHQ-9: PHQ-9 Score PHQ-9: Total score 0 07/13/23 13:32 Depression Screening Interpretation: Negative Thrive Assessment: Date of Thrive Assessment Date Thrive assessed 05/15/24 05/15/24 13:32 Const General: no acute distress HENMT Head: Yes normal to inspection General nose exam: Normal external nose present Mouth: Normal oral and palatal mucosa present Throat: Yes posterior oropharynx normal Eyes General: appearance normal, both eyes and all related structures Neck Neck: Yes no lymphadenopathy and Yes supple Resp Effort & Inspection: normal respiratory effort Auscultation: clear to auscultation bilaterally Cardio Rhythm: regular rhythm Heart sounds: S1 normal heart sound present and S2 normal heart sound present GI Inspection: Yes normal to inspection Palpation (GI): Soft to palpation Percussion: Yes normal to percussion Auscultation: normal bowel sounds Assessment and Plan Assessment & Plan (1) Hyperlipemia: Code(s): E78.5 - Hyperlipidemia, unspecified Plan: low cholesterol diet (2) 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 She is up-to-date with the mammogram. Orders: Orders Complete Blood Count Auto Diff Today E55.9 - Vitamin D deficiency, unspecified, E78.5 - Hyperlipidemia, unspecified, I10 - Essential (primary) hypertension, Z00.00 - Encounter for general adult medical examination without abnormal findings Vitamin D 25-OH (D2 and D3) Today E55.9 - Vitamin D deficiency, unspecified, E78.5 - Hyperlipidemia, unspecified, I10 - Essential (primary) hypertension, Z00.00 - Encounter for general adult medical examination without abnormal findings Comprehensive [place]. Panel Fast Today E55.9 - Vitamin D deficiency, unspecified, E78.5 - Hyperlipidemia, unspecified, I10 - Essential (primary) hypertension, Z00.00 - Encounter for general adult medical examination without abnormal findings Lipid Panel Today E55.9 - Vitamin D deficiency, unspecified, E78.5 - H yperlipidemia, unspecified, I10 - Essential (primary) hypertension, Z00.00 - Encounter for general adult medical examination without abnormal findings Medications: New ibuprofen 400 mg PO Q8H 180 tabs 0RF Refilled lidocaine 5% 2 patches topical DAILY 90 days 270 ea 5RF Coding Level of Care Code Est Pt Prev Care >65y(79360) Diagnoses Hyperlipemia E78.5 Carcinoma of appendix C18.1 HTN (hypertension) I10 Annual physical exam Z00.00
== END 2023-07-13 14:08 | disposition home or self-care (01) ==
PROVIDERS: PCP Internal Medicine; Visit Provider Internal Medicine
DX: E78.5 Hyperlipidemia, unspecified (principal); C18.1 Malignant neoplasm of appendix; I10 Essential (primary) hypertension; Z00.00 Encounter for general adult medical examination without abnormal findings
CPT/HCPCS: 99397

== ENCOUNTER 2023-12-05 11:56 | Outpatient (AMB) | payer MEDICARE, SELFPAY ==
--- NOTE | 2023-12-05 12:14 | MHC.OFFVIS ---
Intake Visit Reasons: OV- B/L knee injections, last inj 04/25/23 Intake Note: Yulia is a 73 year old female who presents today for bilateral knee injections, last injections administered 04/25/23. Injections were helpful and she would like to repeat injections today Allergies No Known Allergies Allergy (Verified 07/13/23 13:13) HPI HPI OV- B/L knee injections, last inj 04/25/23: Details: Yulia is a 73 year old female who presents today for bilateral knee injections, last injections administered 04/25/23. Injections were helpful and she would like to repeat injections today PFSH Medical History SOB (shortness of breath) Nephrolithiasis Hyperlipemia Postherpetic neuralgia Weight loss Portal vein thrombosis Carcinoma of appendix Prolapse of bladder Abdominal distention HTN (hypertension) PTSD (post-traumatic stress disorder) Osteopenia Right renal stone Surgical History History of hernia surgery History of partial hysterectomy History of lithotripsy History of tubal ligation Family History Father Renal cell carcinoma HTN (hypertension) Stroke Mother HTN (hypertension) CVD (cardiovascular disease) Afib Social History Housing: House Alcohol intake: never Patient Tobacco Use Status: Never used Tobacco e-Cigarette/Vaping Use: Never Used service: No Current occupational status: retired Cognitive needs: No Hearing needs: No Vision needs: Yes Physical Exam Const General: no acute distress, alert and awake Orientation/consciousness: patient oriented x3 HEENT Head: Yes normocephalic and Yes atraumatic Eyes EOM: EOMs intact bilaterally Resp Effort & Inspection: normal respiratory effort and able to speak in complete sentences Cardio Jugular venous distension: no JVD Skin General skin exam: turgor normal Rashes: no rashes Neuro General: patient oriented x3 Extrem Other: Bilateral Knees: TTP medial compartment Psych Appearance: grossly normal Affect: normal affect Attitude: cooperative Office Procedures Joint Injection/Aspiration Joint Injection/Aspiration Details: Injected 1 mL of Decadron and 3 mL 1% lidocaine and 3 mL of 0.25% Marcaine. Site was prepped using aseptic technique. Patient tolerated the procedure well. Primary Site: right knee Secondary Site: left knee Approach Used: anterolateral Coding 52173 - Large joint 10030 - Glenohumeral/Tronchanteric Bursa/Intraarticular Procedure code (CPT) selection complete Assessment & Plan Assessment & Plan (1) Osteoarthritis of right knee: Code(s): M17.11 - Unilateral primary osteoarthritis, right knee Category: Medical Plan: Injected bilateral knees Continue activity as tolerated (2) Osteoarthritis of left knee: Code(s): M17.12 - Unilateral primary osteoarthritis, left knee Category: Medical Plan: Coding Level of Care Code Est Pt Level 3 (77034) Diagnoses Osteoarthritis of right knee M17.11 Osteoarthritis of left knee M17.12 CPT Codes Coding - Large joint: 31017 - Large joint ([id number]) Coding - Joint 7: 09305 - Glenohumeral/Tronchanteric Bursa/Intraarticular ([id number])
== END 2023-12-05 12:38 | disposition home or self-care (01) ==
PROVIDERS: PCP Internal Medicine; Visit Provider Orthopaedic Surgery
DX: M17.0 Bilateral primary osteoarthritis of knee (principal)
CPT/HCPCS: 20610; 99213

== ENCOUNTER → 2023-12-05 11:56 | Outpatient (BNVA) | payer MEDICARE, SELFPAY | PROVIDERS: PCP Internal Medicine; Visit Provider Orthopaedic Surgery | DX: M17.0 Bilateral primary osteoarthritis of knee (principal) | CPT/HCPCS: 20610; 99212; J0665; J1100; J2003 ==

== ENCOUNTER 2024-04-10 13:08 | Outpatient (REF) | payer MEDICARE, SELFPAY | END 2024-04-10 13:09 | disposition home or self-care (01) | LOC: HO.MAMMO 13:08 | PROVIDERS: PCP Internal Medicine; Visit Provider Internal Medicine | DX: Z12.31 Encounter for screening mammogram for malignant neoplasm of breast (principal) | CPT/HCPCS: 77063; 77067 ==

== ENCOUNTER → 2024-04-10 13:30 | Outpatient (BNV) | payer MEDICARE, SELFPAY | PROVIDERS: PCP Internal Medicine; Visit Provider Internal Medicine | DX: Z12.31 Encounter for screening mammogram for malignant neoplasm of breast (principal) | CPT/HCPCS: 77063; 77067 ==

== ENCOUNTER 2024-04-23 09:49 | Outpatient (AMB) | payer MEDICARE, SELFPAY ==
[2024-04-23 09:51] VITALS: BMI 29.1
--- NOTE | 2024-04-23 09:51 | A.OFFVIS_ITS ---
Vital Signs 04/23/24 09:51 Height 5 ft 1 in Weight 154 lb BMI 29.1 Intake Visit Reasons: Inj-B/L knee injections, last inj 12/05/23 Intake Note: Yulia is a 73 year old female who presents today for a follow up of her Bilateral Knee OA. Injections were last administered bilaterally on 12/05/23. Patient reports that she has continued to have good relief with cortisone injections and she would like to repeat injections for both of her knees today. Left knee worse than right Allergies No Known Allergies Allergy (Verified 07/13/23 13:13) HPI HPI Inj-B/L knee injections, last inj 12/05/23: Details: Here fro bilateral knee OA. Injections have been helpful. She had her last injection about 4 months ago. [facility] Medical History SOB (shortness of breath) Nephrolithiasis Hyperlipemia Postherpetic neuralgia Weight loss Portal vein thrombosis Carcinoma of appendix Prolapse of bladder Abdominal distention HTN (hypertension) PTSD (post-traumatic stress disorder) Osteopenia Right renal stone Surgical History History of hernia surgery History of partial hysterectomy History of lithotripsy History of tubal ligation Family History Father Renal cell carcinoma HTN (hypertension) Stroke Mother HTN (hypertension) CVD (cardiovascular disease) Afib Social History Housing: House Alcohol intake: never Patient Tobacco Use Status: Never used Tobacco e-Cigarette/Vaping Use: Never Used service: No Current occupational status: retired Cognitive needs: No Hearing needs: No Vision needs: Yes Physical Exam Vital Signs: BMI result Body Mass Index 29.1 Const General: no acute distress, alert and awake Orientation/consciousness: patient oriented x3 HEENT Head: Yes normocephalic and Yes atraumatic Eyes EOM: EOMs intact bilaterally Resp Effort & Inspection: normal respiratory effort and able to speak in complete sentences Cardio Jugular venous distension: no JVD Skin General skin exam: turgor normal Rashes: no rashes Neuro General: patient oriented x3 Extrem Other: Bilateral Knees: TTP medial compartment Psych Appearance: grossly normal Affect: normal affect Attitude: cooperative Office Procedures Joint Inj/Aspir; Non-Pain Clin Joint Injection/Drain Details: Injected 1 mL of Decadron and 3 mL 1% lidocaine and 3 mL of 0.25% Marcaine. Site was prepped using aseptic technique. Patient tolerated the procedure well. Shoulders, Hips, Knees, Knee Large Joint Injection : Bilateral Knee Coding Procedure code (CPT) selection complete Assessment & Plan Assessment & Plan (1) Bilateral primary osteoarthritis of knee: Code(s): M17.0 - Bilateral primary osteoarthritis of knee Category: Medical Plan: This is a 73-year-old woman with bilateral knee osteoarthritis. I injected both knees again today. She will follow up in 3-4 months as needed. Coding Level of Care Code Est Pt Level 3 (98385) Diagnoses Bilateral primary osteoarthritis of knee M17.0 CPT Codes Shoulders, Hips, Knees, - Knee Large Joint Injection : Bilateral Knee ([id number])
== END 2024-04-23 10:10 | disposition home or self-care (01) ==
PROVIDERS: PCP Internal Medicine; Visit Provider Orthopaedic Surgery
DX: M17.0 Bilateral primary osteoarthritis of knee (principal)
CPT/HCPCS: 20610; 99213

== ENCOUNTER → 2024-04-23 09:49 | Outpatient (BNVA) | payer MEDICARE, SELFPAY | PROVIDERS: PCP Internal Medicine; Visit Provider Orthopaedic Surgery | DX: M17.0 Bilateral primary osteoarthritis of knee (principal) | CPT/HCPCS: 20610; 99212; J0665; J1100; J2003 ==

== ENCOUNTER 2024-07-26 10:25 | Outpatient (AMB) | payer MEDICARE, SELFPAY ==
[2024-07-26 10:28] VITALS: BMI 29.1
--- NOTE | 2024-07-26 10:28 | MHC.OFFVIS ---
Vital Signs 07/26/24 10:28 Height 5 ft 1 in Weight 154 lb BMI 29.1 Intake Visit Reasons: Inj-B/L knee injections, last inj 04/23/24 Intake Note: Yulia is a 73 year old female who presents today for a follow up of her bilateral knee OA. She was last seen on 04/23/24 where both of her knees were injected, she reports that the injection continue to be helpful and she would like to repeat bilaterally again today. Allergies No Known Allergies Allergy (Verified 07/26/24 10:28) HPI HPI Inj-B/L knee injections, last inj 04/23/24: Details: 74-year-old woman who has bilateral knee OA, varus pattern. She also has a history of abdominal cancer it has been treated with multiple surgeries for bowel resection and she has had severe complications such as bowel obstruction and herniation due to adhesions. For this reason we have been avoiding surgery in injecting her knees instead. She continues to describe pain with ambulation but she remains active and tries to walk regularly. [facility] Medical History SOB (shortness of breath) Nephrolithiasis Hyperlipemia Postherpetic neuralgia Weight loss Portal vein thrombosis Carcinoma of appendix Prolapse of bladder Abdominal distention HTN (hypertension) PTSD (post-traumatic stress disorder) Osteopenia Right renal stone Surgical History History of hernia surgery History of partial hysterectomy History of lithotripsy History of tubal ligation Family History Father Renal cell carcinoma HTN (hypertension) Stroke Mother HTN (hypertension) CVD (cardiovascular disease) Afib Social History Housing: House Alcohol intake: never Patient Tobacco Use Status: Never used Tobacco e-Cigarette/Vaping Use: Never Used service: No Current occupational status: retired Cognitive needs: No Hearing needs: No Vision needs: Yes Physical Exam Vital Signs: BMI result Body Mass Index 29.1 Const General: no acute distress, alert and awake Orientation/consciousness: patient oriented x3 HEENT Head: Yes normocephalic and Yes atraumatic Eyes EOM: EOMs intact bilaterally Resp Effort & Inspection: normal respiratory effort and able to speak in complete sentences Cardio Jugular venous distension: no JVD Skin General skin exam: turgor normal Rashes: no rashes Neuro General: patient oriented x3 Extrem Other: Bilateral Knees: Varus alignment TTP medial compartment Psych Appearance: grossly normal Affect: normal affect Attitude: cooperative Office Procedures Joint Inj/Aspir; Non-Pain Clin Joint Injection/Drain Details: Injected 1 mL of Decadron and 3 mL 1% lidocaine and 3 mL of 0.25% Marcaine. Site was prepped using aseptic technique. Patient tolerated the procedure well. Shoulders, Hips, Knees, Knee Large Joint Injection : Bilateral Knee Coding Procedure code (CPT) selection complete Assessment & Plan Assessment & Plan (1) Bilateral primary osteoarthritis of knee: Code(s): M17.0 - Bilateral primary osteoarthritis of knee Category: Medical Plan: This is a 74-year-old with severe bilateral knee osteoarthritis. She is not an ideal surgical candidate given her history of multiple abdominal surgeries. Otherwise she is a good candidate but I would worry about narcotics postop and associated risks. I discussed this with her. She agrees and we injected both knees. She may follow up in 3-4 months for repeat injections. If the steroid sees to work we can consider viscosupplementation. Coding Level of Care Code Est Pt Level 4 (91005) Diagnoses Bilateral primary osteoarthritis of knee M17.0 CPT Codes Shoulders, Hips, Knees, - Knee Large Joint Injection : Bilateral Knee ([id number])
== END 2024-07-26 11:09 | disposition home or self-care (01) ==
LOC: HO.HOS 10:26
PROVIDERS: PCP Internal Medicine; Visit Provider Orthopaedic Surgery
DX: M17.0 Bilateral primary osteoarthritis of knee (principal)
CPT/HCPCS: 20610; 99214

== ENCOUNTER → 2024-07-26 10:25 | Outpatient (BNVA) | payer MEDICARE, SELFPAY | PROVIDERS: PCP Internal Medicine; Visit Provider Orthopaedic Surgery | DX: M17.0 Bilateral primary osteoarthritis of knee (principal) | CPT/HCPCS: 20610; 99212; J0665; J1100; J2003 ==

== ENCOUNTER 2024-08-06 09:21 | Outpatient (REF) | payer MEDICARE, SELFPAY ==
[2024-08-06 10:12] LABS: MANUAL DIFF FLAG NO
[2024-08-06 10:24] LABS: Basophils Percent Auto 0.4 % (0-2); Eosinophils Absolute Auto 0.2 X10*3/uL (0.0-0.4); Eosinophils Percent Auto 3.1 % (0-4); Hematocrit 41.5 % (37.0-47.0); Imm Gran Abs Auto 0.02 X10*3/uL (0.00-0.03); Imm Gran Pct Auto 0.3 % (0.0-0.4); Lymphocytes Absolute Auto 3.5 X10*3/uL (1.2-4.9); Lymphocytes Percent Auto 46.5 % (20-40); Mean Corpuscular HGB Conc 33.7 g/dl (31.0-35.0); Mean Corpuscular Hemoglobin 31.3 pg (27.0-33.0); Mean Corpuscular Volume 92.6 fL (80.0-98.0); Mean Platelet Volume 9.7 fL (9.4-12.3); Monocytes Absolute Auto 0.6 X10*3/uL (0.1-1.2); Monocytes Percent Auto 8.2 % (2-11); Neutrophils Absolute Auto 3.1 x10*3/uL (2.0-8.3); Neutrophils Percent Auto 41.5 % (45-73); Platelet Count 292 X10*3/uL (160-400); Red Blood Count 4.48 X10*6/uL (4.20-5.50); Red Cell Distribution Width 13.1 % (11.0-16.0); White Blood Count 7.5 X10*3/uL (4.8-10.8)
[2024-08-06 11:05] LABS: Alanine Aminotransferase 30 U/L (0-31); Albumin Level 4.5 g/dL (3.5-5.0); Alkaline Phosphatase 76 U/L (39-117); Anion Gap 10 (12-20); Aspartate Amino Transferase 33 U/L (5-31); Bilirubin Total 0.5 mg/dL (0.0-1.0); Blood Urea Nitrogen 17 mg/dL (9-16); Calcium 10.3 mg/dL (8.4-10.2); Carbon Dioxide 26 mmol/L (22-29); Chloride 108 mmol/L (96-108); Cholesterol 225 mg/dL (<200); Estimated Glomerular Filt Rate > 60; Glucose Fasting 88 mg/dL (60-99); HDL Cholesterol 56 mg/dL (>40); LDL Cholesterol Calculated 126 mg/dL (<100); Sodium 140 mmol/L (135-145); Total Protein 7.5 g/dL (6.5-8.0); Triglycerides 219 mg/dL (<150)
[2024-08-07 16:28] LABS: Calcium, Ionized 5.7 mg/dL (4.7-5.5)
== END 2024-08-06 09:22 | disposition home or self-care (01) ==
LOC: HO.HMGCLDS 09:21
PROVIDERS: PCP Internal Medicine; Visit Provider Internal Medicine
DX: Z00.00 Encounter for general adult medical examination without abnormal findings (principal); E55.9 Vitamin D deficiency, unspecified; I10 Essential (primary) hypertension
CPT/HCPCS: 36415; 80053; 80061; 82306; 82330; 85025

== ENCOUNTER 2024-08-23 12:20 | Outpatient (AMB) | payer MEDICARE, SELFPAY ==
[2024-08-23 12:41] VITALS: BP 124/78; PULSE 81; RESP 18; TEMP 37.2; O2SAT 98; BMI 29.1
--- NOTE | 2024-08-23 12:41 | A.OFFPC_ITS ---
Vital Signs 08/23/24 12:41 Height 5 ft 1 in Weight 154 lb BMI 29.1 BP 124/78 Blood Pressure Location Lt brachial Position Sitting Respiration 18 Pulse 81 Pulse Source Pulse Oximeter Temp 99.0 F Temp Source Oral Pulse Oximetry (%) 98 Oxygen Delivery Method Room Air Intake Visit Reasons: PE Intake Note: Pt is here today for PE. Allergies No Known Allergies Allergy (Verified 08/23/24 12:41) Medication List - Last Reconciled 08/23/24 by Meghana Hess MD docusate sodium 100 mg PO BID PRN gabapentin 200 mg (2 x 100 mg) PO BID 90 days ibuprofen 400 mg PO Q8H lidocaine 5% 2 patches topical DAILY 90 days lisinopril 2.5 mg (1/2 x 5 mg) PO DAILY polyethylene glycol 3350 17 grams PO DAILY potassium citrate ER 20 mEq (2 x 10 mEq (1,080 mg)) PO BID 30 days Tobacco use date assessed: 08/23/24 Fall risk assessment: No Falls in past year Last assessed Fall Risk: 08/23/24 Dental Screening Dental Screen Date: 08/23/24 Did you have a dental visit in the last 12 months?: Yes Did you have a dental problem in the last 6 months where you did not have access to dental care?: No Was dental information given to patient?: Patient has dentist HPI PE HPI Details Patient presents for physical PFSH Medical History (Updated 08/23/24 @ 15:49 by Meghana Hess MD) SOB (shortness of breath) Nephrolithiasis Hyperlipemia Postherpetic neuralgia Weight loss Portal vein thrombosis Carcinoma of appendix Prolapse of bladder Abdominal distention HTN (hypertension) PTSD (post-traumatic stress disorder) Osteopenia Right renal stone Surgical History History of hernia surgery History of partial hysterectomy History of lithotripsy History of tubal ligation Family History Father Renal cell carcinoma HTN (hypertension) Stroke Mother HTN (hypertension) CVD (cardiovascular disease) Afib Social History Housing: House Alcohol intake: never Patient Tobacco Use Status: Never used Tobacco e-Cigarette/Vaping Use: Never Used Second Hand Smoke Exposure: No service: No Current occupational status: retired Cognitive needs: No Hearing needs: No Vision needs: Yes Questionnaire PHQ-9 Over the last 2 weeks, how often have you been bothered by any of the following problems? 1. Little interest or pleasure in doing things: not at all 2. Feeling down, depressed, or hopeless: not at all 3. Trouble falling or staying asleep, or sleeping too much: not at all 4. Feeling tired or having little energy: not at all 5. Poor appetite or overeating: not at all 6. Feeling bad about yourself - or that you are a failure or have let yourself or your family down: not at all 7. Trouble concentrating on things, such as reading the newspaper or watching television: not at all 8. Moving or speaking so slowly that other people could have noticed. Or the opposite - being so fidgety or restless that you have been moving around a lot more than usual: not at all 9. Thoughts that you would be better off or of hurting yourself in some way: not at all Total score: 0 Depression Screening Interpretation: Negative Depression Screening Done: Yes 23205 - PHQ-9 Billing: Yes Source: Developed by Drs. Micha Butts, Catalina Hernandez, Richard Trujillo and colleagues, with an educational cecil from [employer]. Thrive Questionnaire Date Thrive assessed: 08/23/24 I am a: Patient What is your living situation today?: I have a steady place to live Within the past 12 months, did the food you bought not last and you didn't have the money to get more?: Never true Within the past 12 months, did you worry whether your food would run out before you got money to buy more?: Never true Do you have trouble paying for medicines?: No Do you have trouble getting transportation to medical appointments?: No Do you have trouble paying your heating and electricity bill?: No Do you have trouble taking care of your child, family member or friend?: No Do you have trouble with day-to-day activities such as bathing, preparing meals, shopping, managing finances, etc.?: No Are you currently unemployed and looking for a job?: No Are you interested in more education?: No Please select the resources that you would like help with: None Currently or been in a relationship where the following occur: No concerns reported THRIVE Score: 0 AUDIT C Alcohol Use Questionnaire (AUDIT-C) 1. How often do you have a drink containing alcohol?: Never 3. How often do you have six or more drinks on one occasion?: Never Total Score: 0 JESSICA-7 AMB Questionnaire JESSICA-7 Date JESSICA - 7 assessed: 08/23/24 Feeling nervous, anxious, or on edge: 0 = Not at all Not being able to stop or control worryin = Not at all Worrying too much about different things: 0 = Not at all Trouble relaxin = Not at all Being so restless that it is hard to sit still: 0 = Not at all Becoming easily annoyed or irritable: 0 = Not at all Feeling afraid as if something awful might happen: 0 = Not at all Total JESSICA-7 score (0-4 normal; 5-9 mild; 10-14 moderate; 15-21 severe): 0 Source: Developed by Drs. Micha Butts, Catalina Hernandez, Richard Trujillo and colleagues, with an educational cecil from [employer]. JESSICA-7 Assessment Billing JESSICA-7 Assessment Tool: JESSICA-7 Assessment 78892 Review of Systems Const All systems reviewed & are unremarkable except as noted in HPI and below Eyes Reports no additional complaints ENT Reports no additional complaints Card Reports no additional complaints Resp Reports no additional complaints GI Reports no additional complaints Reports no additional complaints Physical exam (Primary Care) Vital Signs: Last Vital Signs Temp 99.0 F 08/23/24 12:41 Pulse 81 08/23/24 12:41 Resp 18 08/23/24 12:41 BP 124/78 08/23/24 12:41 Pulse Ox 98 08/23/24 12:41 Oxygen Delivery Method Room Air 08/23/24 12:41 BMI result Body Mass Index 29.1 Tobacco/Smoking Status: Tobacco use Status Tobacco use date assessed 08/23/24 08/23/24 12:42 Patient Tobacco Use Status Never used Tobacco 08/23/24 12:42 e-Cigarette/Vaping Use Never Used 08/23/24 12:42 PHQ-9: PHQ-9 Score PHQ-9: Total score 0 08/23/24 12:42 Depression Screening Interpretation: Negative Thrive Assessment: Date of Thrive Assessment Date Thrive assessed 08/23/24 08/23/24 12:42 Currently or been in a relationship where the following occur: No concerns reported Const General: no acute distress HENMT Head: Yes normal to inspection Face and sinus: Yes normal facial exam Eyes General: appearance normal, both eyes and all related structures Neck Neck: Yes no lymphadenopathy and Yes supple Resp Effort & Inspection: normal respiratory effort Auscultation: clear to auscultation bilaterally Cardio Rhythm: regular rhythm Heart sounds: S1 normal heart sound present and S2 normal heart sound present GI Inspection: Yes normal to inspection Palpation (GI): Soft to palpation Percussion: Yes normal to percussion Auscultation: normal bowel sounds Coding Level of Care Code Est Pt Prev Care >65y(82906) Diagnoses Hyperlipemia E78.5 Hypercalcemia E83.52 Nephrolithiasis N20.0 Carcinoma of appendix C18.1 Annual physical exam Z00.00 Postherpetic neuralgia B02.29 Additional Codes JESSICA-7 Assessment Billing - JESSICA-7 Assessment Tool: JESSICA-7 Assessment 63300 ([id number]) PHQ-9 - 22711 - PHQ-9 Billing: Yes ([id number]) Assessment & Plan Assessment & Plan (1) Hyperlipemia: Code(s): E78.5 - Hyperlipidemia, unspecified Category: Medical Plan: Continue low-cholesterol diet check lipid profile in 6 months (2) Hypercalcemia: Code(s): E83.52 - Hypercalcemia Category: Medical Plan: Borderline, monitor calcium and PTH level (3) Nephrolithiasis: Comment: Renal CT with scarring no recurrent nephrolithiasis 06/2024, follow-up with [facility] Code(s): N20.0 - Calculus of kidney Category: Medical Plan: Follow-up with urology (4) 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, surveillance CT of the abdomen January 2024 and tumor markers negative, follow-up with [facility] Code(s): C18.1 - Malignant neoplasm of appendix Category: Medical Plan: Follow-up with oncology (5) Annual physical exam: Code(s): Z00.00 - Encounter for general adult medical examination without abnormal findings Category: Medical Plan: Well-balanced diet regular physical activity discussed with the patient (6) Postherpetic neuralgia: Comment: On gabapentin Code(s): B02.29 - Other postherpetic nervous system involvement Category: Medical Plan: Continue gabapentin Orders: Orders Comprehensive [place]. Panel Fast 6 Months E78.5 - Hyperlipidemia, unspecified, E83.52 - Hypercalcemia, N20.0 - Calculus of kidney Parathyroid Hormone Intact 6 Months E78.5 - Hyperlipidemia, unspecified, E83.52 - Hypercalcemia, N20.0 - Calculus of kidney Lipid Panel 6 Months E78.5 - Hyperlipidemia, unspecified, E83.52 - Hypercalcemia, N20.0 - Calculus of kidney Uric Acid 6 Months E83.52 - Hypercalcemia, N20.0 - Calculus of kidney Medications: Discontinued ibuprofen Discontinued Reason: Doctor's Order 600 mg PO TID 90 tabs 4RF
== END 2024-08-23 13:19 | disposition home or self-care (01) ==
LOC: HO.HMCC 12:21
PROVIDERS: PCP Internal Medicine; Visit Provider Internal Medicine
DX: Z00.00 Encounter for general adult medical examination without abnormal findings (principal); C18.1 Malignant neoplasm of appendix; E78.5 Hyperlipidemia, unspecified; E83.52 Hypercalcemia; N20.0 Calculus of kidney; B02.29 Other postherpetic nervous system involvement

== ENCOUNTER → 2024-08-23 12:20 | Outpatient (BNVA) | payer MEDICARE, SELFPAY | PROVIDERS: PCP Internal Medicine; Visit Provider Internal Medicine | DX: Z00.00 Encounter for general adult medical examination without abnormal findings (principal); E78.5 Hyperlipidemia, unspecified; E83.52 Hypercalcemia; N20.0 Calculus of kidney; C18.1 Malignant neoplasm of appendix; B02.29 Other postherpetic nervous system involvement | CPT/HCPCS: 96127; 99397 ==

== ENCOUNTER 2024-11-05 10:57 | Outpatient (AMB) | payer MEDICARE, SELFPAY ==
--- NOTE | 2024-11-05 11:17 | A.OFFVIS_ITS ---
Intake Visit Reasons: Inj-B/L knee injections, last inj 07/26/24 Intake Note: Yulia is a 74 year old female who presents today for repeat bilateral knee injections, last injection were administered on 07/26/24. Allergies No Known Allergies Allergy (Verified 08/23/24 12:41) HPI HPI Inj-B/L knee injections, last inj 07/26/24: Details: Yulia is a 74 year old female who presents today for repeat bilateral knee injections, last injection were administered on 07/26/24. She continues to have bilateral knee pain [facility] Medical History (Updated 08/23/24 @ 15:49 by Meghana Hess MD) SOB (shortness of breath) Nephrolithiasis Hyperlipemia Postherpetic neuralgia Weight loss Portal vein thrombosis Carcinoma of appendix Prolapse of bladder Abdominal distention HTN (hypertension) PTSD (post-traumatic stress disorder) Osteopenia Right renal stone Surgical History History of hernia surgery History of partial hysterectomy History of lithotripsy History of tubal ligation Family History Father Renal cell carcinoma HTN (hypertension) Stroke Mother HTN (hypertension) CVD (cardiovascular disease) Afib Social History Housing: House Alcohol intake: never Patient Tobacco Use Status: Never used Tobacco e-Cigarette/Vaping Use: Never Used Second Hand Smoke Exposure: No service: No Current occupational status: retired Cognitive needs: No Hearing needs: No Vision needs: Yes Physical Exam Extrem Other: Skin clean dry and intact Office Procedures Joint Inj/Aspir; Non-Pain Clin Joint Injection/Drain Details: Injected 1 mL of Decadron and 3 mL 1% lidocaine and 3 mL of 0.25% Marcaine. Site was prepped using aseptic technique. Patient tolerated the procedure well. Shoulders, Hips, Knees, Knee Large Joint Injection : Bilateral Knee Coding Procedure code (CPT) selection complete Assessment & Plan Assessment & Plan (1) Bilateral primary osteoarthritis of knee: Code(s): M17.0 - Bilateral primary osteoarthritis of knee Category: Medical Plan: I injected bilateral knees today. Follow up 3 months. Coding Level of Care Code Est Pt Level 3 (86535) Diagnoses Bilateral primary osteoarthritis of knee M17.0 CPT Codes Shoulders, Hips, Knees, - Knee Large Joint Injection : Bilateral Knee ([id number])
--- OUTSIDE RECORDS SUMMARY | 2024-11-05 13:23 | XMS_ITS | Clinical Summary ---
Author Organization [facility] Address [address] [address] Phone Care Team Providers Care Associate Merchandise Planner Name Role Phone Meghana Hess MD Primary Care Provider [phone] Medications PSYLLIUM HUSK (METAMUCIL ORAL) Act liz Medication-Free Text Ibuprofen Active CYCLOBENZAPRINE HCL (CYCLOBENZAPRINE ORAL) Active Medication-Free Text Calcium + D3 Active aspirin (ASPIR-81) 81 MG EC tablet Active Medication-Free Text LORazepam Active NITROFURANTOIN MACROCRYSTAL ORAL Ac tive LISINOPRIL ORAL Acti ve Medication-Free Text Allopurinol Active L ACIDOPHIL/B LACTIS/B LONGUM (FLORAJEN3 ORAL) Act liz Family History Medical History Relation Comments CV disease Father 2 CV disease Mother 2 Relation Status Comments Father 1 Father 2 Mother 1 Mother 2 Social History Tobacco Use Types Packs/Day Years Used Date Smoking Tobacco: Never Assessed Education Answer Date Recorded Are you interested in more education? Not on valerie e 06/25/2022 Are you concerned about learning? Not on file 06/25/2022 No 06/25/2022 No 06/25/2022 Digital Access Answer Date Recorded No 07/24/2022 No 07/24/2022 Reliable internet access at home? Not on file 07/24/2022 Device with a working camera? Not on file Comments Unknown Sex and Gender Information Value Date Recorded Sex Assigned at Not on file Legal Sex Female 10:36 PM EDT Gender Identity Not on file Sexual Orientation Not on file Last Filed Vital Signs Vital Sign Reading Time Taken Comments Blood Pressure - - Pulse - - Temperature - - Respiratory Rate - - Oxygen Saturation - - Inhaled Oxygen Concentration - - Weight 68 kg (150 lb) 04/26/2016 8:40 AM EST Height 157.5 cm (5' 2 ) 04/26/2016 8:40 AM EST Body Mass Index 27.44 04/26/2016 8:40 AM EST Plan of Treatment Health Maintenance Due Date Last Done Comments CREATININE LEVEL 1949 LIPID PANEL 1949 POTASSIUM LEVEL 1949 DEPRESSION SCREENING 1961 SMOKING Hx and SMOKELESS TOBACCO SCREENING 1962 HEPATITIS C SCREENING 06/25/1967 COLOGUARD 1994 COLONOSCOPY 1994 COLORECTAL CANCER SCREENING 1994 FIT TEST 1994 FOBT 1994 SIGMOIDOSCOPY 1994 VIRTUAL COLONOSCOPY 1994 ZOSTER VACCINES (2 of 3) 09/05/2013 07/11/2013 OSTEOPOROSIS SCREENING INITIAL (ONE-TIME) 2014 RSV VACCINE (1 - 1-dose 75+ series) 2024 INFLUENZA VACCINE (#1) 2024 , 11/29/2018, 12/02/2017, Additional history exists COVID-19 VACCINE ( season) 2024 04/15/2020, 03/26/2020 Adult Td,Tdap Booster 12/21/2025 12/22/2015 HIB VACCINES Aged Out 04/09/2020 No longer eligi ble based on patient's age to complete this topic MENINGOCOCCAL VACCINES (ACWY) Aged Out 04/09/2020 No longer eligible based on patient's age to complete this topic PNEUMOCOCCAL VACCINES (50+ years) Completed 04/09/2020, 10/15/2016, 09/15/2015 MENINGOCOCCAL VACCINES (B) Aged Out 05/18/2020, No longer eligible based on patient's age to complete this topic HEPATITIS A VACCINES Aged Out No long er eligible based on patient's age to complete this topic Medical Devices Not on file Insurance [employer] [place] [place] BLUE REPLACEMENT [place] MED[employer] HMO BLUE REPLACEMENT [employer]MO BLUE REPLACEMENT [employer]MO BLUE REPLACEMENT [employer] HMO BLUE REPLACEMENT [employer] HMO BLUE REPLACEMENT [employer] HMO BLUE REPLACEMENT [employer] [place] MEDICARE HMO BLUE REPLACEMENT [employer] [place] MEDICARE HMO BLUE REPLACEMENT Care Teams Associate Merchandise Planner Relationship Specialty Start Date End Date Meghana Hess MD [address] [place] [id number] PCP - General Internal Medicine 02/18/20 Additional Source Comments The information contained in this document represents components of the legal health record. It is not the complete legal health record.[facility]
== END 2024-11-05 11:20 | disposition home or self-care (01) ==
LOC: HO.HOS 10:57
PROVIDERS: PCP Internal Medicine; Visit Provider Orthopaedic Surgery
DX: M17.0 Bilateral primary osteoarthritis of knee (principal)
CPT/HCPCS: 20610

== ENCOUNTER → 2024-11-05 10:57 | Outpatient (BNVA) | payer MEDICARE, SELFPAY | PROVIDERS: PCP Internal Medicine; Visit Provider Orthopaedic Surgery | DX: M17.0 Bilateral primary osteoarthritis of knee (principal) | CPT/HCPCS: 20610; J0665; J1100; J2003 ==

== ENCOUNTER 2025-02-04 10:15 | Outpatient (AMB) | payer MEDICARE, SELFPAY ==
--- NOTE | 2025-02-04 10:18 | A.OFFVIS_ITS ---
Vital Signs 02/04/25 10:20 Height 5 ft 1 in Weight 150 lb BMI 28.3 Intake Visit Reasons: Inj-B/L knee injections, last inj 11/05/24 Intake Note: Yulia is a 74 year old female who presents today for a repeat bilateral knee injections, last injections done 07/26/24 injections show inprovment for two and a half months Allergies No Known Allergies Allergy (Verified 02/04/25 10:20) HPI HPI Inj-B/L knee injections, last inj 11/05/24: Details: here for bilateral knee injections. Continuing to describe bilateral knee pain. Has bilateral knee osteoarthritis. Does not replacements. [facility] Medical History (Updated 01/21/25 @ 16:00 by Meghana Hess MD) SOB (shortness of breath) Nephrolithiasis Hyperlipemia Postherpetic neuralgia Weight loss Portal vein thrombosis Carcinoma of appendix Prolapse of bladder Abdominal distention HTN (hypertension) PTSD (post-traumatic stress disorder) Osteopenia Right renal stone Surgical History History of hernia surgery History of partial hysterectomy History of lithotripsy History of tubal ligation Family History Father Renal cell carcinoma HTN (hypertension) Stroke Mother HTN (hypertension) CVD (cardiovascular disease) Afib Social History Housing: House Alcohol intake: never Patient Tobacco Use Status: Never used Tobacco e-Cigarette/Vaping Use: Never Used Second Hand Smoke Exposure: No service: No Current occupational status: retired Cognitive needs: No Hearing needs: No Vision needs: Yes Physical Exam Vital Signs: BMI result Body Mass Index 28.3 Const General: no acute distress, alert and awake Orientation/consciousness: patient oriented x3 HEENT Head: Yes normocephalic and Yes atraumatic Eyes EOM: EOMs intact bilaterally Resp Effort & Inspection: normal respiratory effort and able to speak in complete sentences Cardio Jugular venous distension: no JVD Skin General skin exam: turgor normal Rashes: no rashes Neuro General: patient oriented x3 Extrem Other: Bilateral Knees: Varus alignment TTP medial compartment Psych Appearance: grossly normal Affect: normal affect Attitude: cooperative Office Procedures Joint Inj/Aspir; Non-Pain Clin Joint Injection/Drain Details: Injected 1 mL of Decadron and 3 mL 1% lidocaine and 3 mL of 0.25% Marcaine. Site was prepped using aseptic technique. Patient tolerated the procedure well. Shoulders, Hips, Knees, Knee Large Joint Injection : Bilateral Knee Coding Procedure code (CPT) selection complete Assessment & Plan Assessment & Plan (1) Bilateral primary osteoarthritis of knee: Code(s): M17.0 - Bilateral primary osteoarthritis of knee Category: Medical Plan: I injected bilateral knees. May follow up 3 months or as needed. Coding Level of Care Code Est Pt Level 3 (66834) Diagnoses Bilateral primary osteoarthritis of knee M17.0 CPT Codes Shoulders, Hips, Knees, - Knee Large Joint Injection : Bilateral Knee ([id number])
[2025-02-04 10:20] VITALS: BMI 28.3
== END 2025-02-04 10:41 | disposition home or self-care (01) ==
LOC: HO.HOS 10:15
PROVIDERS: PCP Internal Medicine; Visit Provider Orthopaedic Surgery
DX: M17.0 Bilateral primary osteoarthritis of knee (principal)
CPT/HCPCS: 20610

== ENCOUNTER → 2025-02-04 10:15 | Outpatient (BNVA) | payer MEDICARE, SELFPAY | PROVIDERS: PCP Internal Medicine; Visit Provider Orthopaedic Surgery | DX: M17.0 Bilateral primary osteoarthritis of knee (principal) | CPT/HCPCS: 20610; J0665; J1100; J2003 ==